=== PATIENT | female | born 1965 | race Caucasian/White ===

== ENCOUNTER 2016-05-27 14:43 | Emergency (ER) | payer MEDICARE, MEDICAID ==
[~2016-05-27] VITALS: Ht 175.3 cm; Wt 92.4 kg
[~2016-05-27 14:43] MED LIST: ESTR1TAB PO; ESTR42.5V VA; HYDR1CAP30 PO; PERC7.5T13 PO
[2016-05-27 14:52] VITALS: BP 125/74; PULSE 71; RESP 16; TEMP 97.6; O2SAT 99
[2016-05-27 15:37] LABS: BLOOD, URINE NEG (NEG); GLUCOSE,URINE NEG (NEG); KETONE, URINE NEG (NEG); NITRITE,URINE NEG (NEG)
[2016-05-27] MEDS ORDERED: LIDO1CRE8 TOPICAL (15:52)
[2016-05-27] MEDS ORDERED: ESTR1TAB PO (15:52)
[2016-05-27] MEDS ORDERED: ESTR42.5V VAGINAL (15:52)
[2016-05-27] MEDS ORDERED: LIDO3CRE TOPICAL (15:52)
[2016-05-27] MEDS ORDERED: PERC7.5T13 PO (15:52)
[2016-05-27] MEDS ORDERED: HYDR1CAP30 PO (15:52)
[2016-05-27 15:57] LABS: URINE COLOR YELLOW (YELLW/STRAW)
[2016-05-27 15:58] LABS: COMMENT (UR) CULT NOT INDICATED; CULTURE IF INDICATED CULT NOT INDICATED; RBC, URINE 0-3 /hpf (0-3); WBC, URINE 0-2 /hpf (0-5)
--- NOTE | 2016-05-27 16:20 | PD ---
HPI Chief Complaint: Complaint Time Seen by Provider: 15:41 Travel History International Travel<30 days: No Contact w/Intl Traveler<30days: No Traveled to known affect area: No History of Present Illness HPI Patient is a 51 year old transgender (male to female) patient presents to the emergency department for complaints of frequent urination and pelvic pain. Patient states has been seen numerous times in the past diagnosed with UTI and this feels similar. she also has a history of chronic pain syndrome of her genitalia and pelvis. Patient states she follows with a urologist but has not seen in some time. Denies discharge, diarrhea, blood in urine, fever. States symptoms on/off for a month. Waxing and waning. Now moderate in severity. PFSH Past Medical History Depression: Yes Heart Rhythm Problems: No Cardiac Catheterization: No Cardiovascular Problems: No High Cholesterol: Yes Congestive Heart Failure: No Diabetes: No Diminished Hearing: No Gastrointestinal Disorders: Yes GERD: Yes Genitourinary: Yes (Frequent UTI's/pelvic pain) Hypertension: No Immunizations Current: No Myocardial Infarction: No Tetanus Vaccination: Unknown Influenza Vaccination: No ?: Not Menopausal: Yes Past Surgical History Abdominal Surgery: Yes (Hernia repair) Coronary Artery Bypass Graft: No Genitourinary Surgery: Yes (Gender reassignment sx) Gynecologic Surgery: Yes (Gender reassignment sx) Hysterectomy: No Other Surgery: Yes (GENDER REASSAIGNMENT SURGERY lt labial) Family History Family Myocardial Infarction: Yes Social History Alcohol Use: No Tobacco Use: No Substance Use: No Allergies-Medications (Allergen,Severity, Reaction): Coded Allergies: Ampicillin (Verified Allergy, Severe, RASH, 05/27/16) Diazepam (Verified Allergy, Severe, nausea dizzy fainting , 05/27/16) Valium (Verified Allergy, Severe, DIZZY, 05/27/16) Sulfa (Verified Allergy, Intermediate, nausea, 05/27/16) Terazosin (Unverified Adverse Reaction, Severe, made me feel bad to stop it, 05/27/16) Dolobid (Verified Adverse Reaction, Intermediate, nausea, 05/27/16) Floxcin (Verified Adverse Reaction, Intermediate, NAUSEA, 05/27/16) Relafen (Verified Adverse Reaction, Unknown, nausea, 05/27/16) Reported Meds & Prescriptions Reported Meds & Active Scripts Active Proair Hfa 8.5 GM Inh (Albuterol Sulfate) 90 Mcg/Act Aer 1 Puff INH Q4H PRN 108 mcg/actuation Reported Hydroxyzine Pamoate 25 Mg Cap 25 Mg PO Q6H PRN Percocet (Oxycodone-Acetaminophen) 7.5-325 mg Tab 1 Tab PO Q6H PRN Lidocaine Topical (Lidocaine HCl) 5 % Cream 1 Applic TOPICAL QID PRN Lidocaine-Hydrocortisone Topical 3-0.5 % Cream 1 Applic TOPICAL BID PRN Estradiol 1 Mg Tab 1 Mg PO DAILY Estrace Vaginal (Estradiol) 0.01% Cream 1 Appl VAGINAL HS Review of Systems Except as stated in HPI: all other systems reviewed are Neg Physical Exam Narrative GENERAL: WD/WN in nad. SKIN: Warm and dry. HEAD: Atraumatic. Normocephalic. EYES: Pupils equal and round. No scleral icterus. No injection or drainage. ENT: No nasal bleeding or discharge. Mucous membranes pink and moist. NECK: Trachea midline. No JVD. CARDIOVASCULAR: Regular rate and rhythm. RESPIRATORY: No accessory muscle use. Clear to auscultation. Breath sounds equal bilaterally. GASTROINTESTINAL: Abdomen soft, non-tender, nondistended. Hepatic and splenic margins not palpable. Patient also demonstrates an area in her left groin which is tender (examined with female nurse diagnostics sales developer at all times). MUSCULOSKELETAL: Extremities without clubbing, cyanosis, or edema. No obvious deformities. Low back with minimal tenderness at SI joints (examined with female nurse diagnostics sales developer at all times). NEUROLOGICAL: Awake and alert. No obvious cranial nerve deficits. Motor grossly within normal limits. Five out of 5 muscle strength in the arms and legs. Normal speech. PSYCHIATRIC: Appropriate mood and affect; insight and judgment normal. Data Data Last Documented VS Vital Signs Date Time Temp Pulse Resp B/P Pulse Ox O2 Delivery O2 Flow Rate FiO2 05/27/16 15:43 16 05/27/16 14:52 97.6 71 125/74 99 Orders Urinalysis - C+S If Indicated (05/27/16 14:51) Labs Laboratory Tests Test 05/27/16 15:00 Urine Color YELLOW Urine Turbidity CLEAR Urine pH 7.0 Urine Specific [place] 1.008 Urine Protein NEG mg/dL Urine Glucose (UA) NEG mg/dL Urine Ketones NEG mg/dL Urine Occult Blood NEG Urine Nitrite NEG Urine Bilirubin NEG Urine Leukocyte Esterase NEG Urine RBC 0-3 /hpf Urine WBC 0-2 /hpf Microscopic Urinalysis Comment CULT NOT INDICATED MDM Medical Decision Making Medical Screen Exam Complete: Yes Emergency Medical Condition: Yes Differential Diagnosis UTI, Overactive bladder, hyperglycemia seems unlikely, pelvic pain. Narrative Course Roomed in ER, patient UA completely negative. No glycosuria, no infection. She has ambulated to the rest room multiple times in NAD. After negative UA, she states she has several other issues she would like me to see including low back and groin. Other than mild bilateral SI tenderness, no abnormalities seen. Patient is stable for discharge. Needs follow up with PCP and urologist (which she has) for further workup as outpatient. Patient incidentally asked for a refill on albuterol which she states frequently needs in cold months. Denies SOB currently. Diagnosis Primary Impression: Dysuria Med/Other Pt SpecificInfo: Prescription(s) given Scripts Albuterol 8.5 GM Inh (Proair Hfa 8.5 GM Inh)90 Mcg/Act Aer1 Puff INH Q4H PRN ( SHORTNESS OF BREATH) #1 INHALER Ref 0 108 mcg/actuation Prov:Jarrod Ramirez MD 05/27/16 Disposition: 01 DISCHARGE HOME Condition: Stable Jarrod Ramirez MD May 27, 2016 16:20
[2016-05-27] MEDS ORDERED: ALBUAER3 INH (16:35)
== END 2016-05-27 16:44 | disposition home or self-care (01) ==
LOC: PHED 14:43
DX: R30.0 Dysuria (principal)
CPT/HCPCS: 81001; 99284

== ENCOUNTER 2016-09-29 16:08 | Emergency (ER) | payer MEDICAID, MEDICARE ==
[~2016-09-29] VITALS: Ht 175.3 cm; Wt 89.0 kg
[~2016-09-29 16:08] MED LIST changes: +ALBUAER3 INH; -ESTR42.5V VA; +ESTR42.5V VAGINAL; +LIDO1CRE8 TOPICAL; +LIDO3CRE TOPICAL
[2016-09-29 16:12] VITALS: BP 142/85; PULSE 80; RESP 16; TEMP 97.8; O2SAT 95
[2016-09-29] MEDS ORDERED: AZIT250T3 PO (16:54)
[2016-09-29] MEDS ORDERED: VENTAER INH (16:55)
--- NOTE | 2016-09-29 16:59 | PD ---
HPI Chief Complaint: Cold / Flu Symptoms Time Seen by Provider: 16:20 Travel History International Travel<30 days: No Contact w/Intl Traveler<30days: No Traveled to known affect area: No History of Present Illness HPI 51-year-old female since emergency department for evaluation of a cough for greater than 2 weeks. Patient denies fever, chills, chest pain, shortness of breath. She reports that approximately 2 weeks ago she had upper respiratory like symptoms that originally improved and returned. She now reports a productive cough. Patient has history of asthma and is requesting refill of her albuterol inhaler. PFSH Past Medical History Asthma: Yes Depression: Yes Heart Rhythm Problems: No Cardiac Catheterization: No Cardiovascular Problems: No High Cholesterol: Yes Congestive Heart Failure: No Diabetes: No Diminished Hearing: No Gastrointestinal Disorders: Yes GERD: Yes Genitourinary: Yes (Frequent UTI's/pelvic pain) Hypertension: No Immunizations Current: No Myocardial Infarction: No ?: Not Menopausal: Yes Past Surgical History Abdominal Surgery: Yes (Hernia repair) Coronary Artery Bypass Graft: No Genitourinary Surgery: Yes (Gender reassignment sx) Gynecologic Surgery: Yes (Gender reassignment sx) Hysterectomy: No Other Surgery: Yes (GENDER REASSAIGNMENT SURGERY lt labial) Family History Family Myocardial Infarction: Yes Social History Alcohol Use: No Tobacco Use: No Substance Use: No Allergies-Medications (Allergen,Severity, Reaction): Coded Allergies: Ampicillin (Verified Allergy, Severe, RASH, 09/29/16) Bactrim (Verified Allergy, Severe, 09/29/16) Diazepam (Verified Allergy, Severe, nausea dizzy fainting , 09/29/16) Valium (Verified Allergy, Severe, DIZZY, 09/29/16) Sulfa (Verified Allergy, Intermediate, nausea, 09/29/16) Terazosin (Unverified Adverse Reaction, Severe, made me feel bad to stop it, 09/29/16) Dolobid (Verified Adverse Reaction, Intermediate, nausea, 09/29/16) Floxcin (Verified Adverse Reaction, Intermediate, NAUSEA, 09/29/16) Relafen (Verified Adverse Reaction, Unknown, nausea, 09/29/16) Reported Meds & Prescriptions Reported Meds & Active Scripts Active Proair Hfa 8.5 GM Inh (Albuterol Sulfate) 90 Mcg/Act Aer 1 Puff INH Q4H PRN 108 mcg/actuation Reported Hydroxyzine Pamoate 25 Mg Cap 25 Mg PO Q6H PRN Percocet (Oxycodone-Acetaminophen) 7.5-325 mg Tab 1 Tab PO Q6H PRN Lidocaine-Hydrocortisone Topical 3-0.5 % Cream 1 Applic TOPICAL BID PRN Estradiol 1 Mg Tab 1 Mg PO DAILY Estrace Vaginal (Estradiol) 0.01% Cream 1 Appl VAGINAL HS Review of Systems Except as stated in HPI: all other systems reviewed are Neg Physical Exam Narrative GENERAL: Well-nourished, well-developed patient. Hoarse voice. SKIN: Focused skin assessment warm/dry. HEAD: Normocephalic. EYES: No scleral icterus. No injection or drainage. NECK: Supple, trachea midline. No JVD or lymphadenopathy. CARDIOVASCULAR: Regular rate and rhythm without murmurs, gallops, or rubs. RESPIRATORY: Breath sounds equal bilaterally. No accessory muscle use. GASTROINTESTINAL: Abdomen soft, non-tender, nondistended. MUSCULOSKELETAL: No cyanosis, or edema. BACK: Nontender without obvious deformity. No CVA tenderness. Data Data Last Documented VS Vital Signs Date Time Temp Pulse Resp B/P Pulse Ox O2 Delivery O2 Flow Rate FiO2 09/29/16 16:12 97.8 80 16 142/85 95 MDM Medical Decision Making Medical Screen Exam Complete: Yes Emergency Medical Condition: Yes Differential Diagnosis Bronchitis, laryngitis, viral infection Narrative Course 51-year-old female presents emergency department for evaluation of cough grater than 2 weeks. Patient reports she had flulike symptoms approximately 2-3 weeks ago. She reports symptoms improved and then returned. She reports she now has a productive cough. She denies fever, chills, chest pain, shortness of breath. She does have history of asthma and is requesting refill of her albuterol inhaler. On exam she has no adventitious breath sounds. Patient will be treated for bronchitis and given the stated duration of her symptoms she will be put on antibiotics. She is instructed to follow with her primary doctor for recheck. Diagnosis Primary Impression: Bronchitis Referrals: Primary Care Physician Scripts Albuterol 18 GM Inh (Ventolin Hfa 18 GM Inh)90 Mcg/Act Aer2 Puff INH Q4-6H PRN ( SHORTNESS OF BREATH) #1 INHALER Ref 0 Prov:Petrona Zamorano SUREKHA 09/29/16 Azithromycin 250 Mg [id number] Mg PO DIRECTED #6 TAB Ref 0 Take 2 tabs (500 mg) on day 1 then 1 tab daily x 4 days. Prov:Petrona Zamorano 09/29/16 Disposition: 01 DISCHARGE HOME Condition: Stable Petrona Zamorano Sep 29, 2016 16:59
== END 2016-09-29 17:05 | disposition home or self-care (01) ==
LOC: PHEFT 16:08
DX: J40 Bronchitis, not specified as acute or chronic (principal); E78.00 Pure hypercholesterolemia, unspecified; K21.9 Gastro-esophageal reflux disease without esophagitis; Z87.440 Personal history of urinary (tract) infections
CPT/HCPCS: 99284

== ENCOUNTER 2016-10-21 11:23 | Emergency (ER) | payer MEDICARE ==
[~2016-10-21] VITALS: Ht 175.3 cm; Wt 91.0 kg
[~2016-10-21 11:23] MED LIST changes: +AZIT250T3 PO; -LIDO1CRE8 TOPICAL; +VENTAER INH
[2016-10-21 11:27] VITALS: BP 132/78; PULSE 68; RESP 16; TEMP 97.5; O2SAT 97
--- NOTE | 2016-10-21 11:37 | PD ---
HPI Chief Complaint: Complaint Time Seen by Provider: 11:35 Travel History International Travel<30 days: No Contact w/Intl Traveler<30days: No Traveled to known affect area: No History of Present Illness HPI 51 YO F with PMH of chronic pain syndrome of the pelvis presents to the ED for evaluation of 3 day history of low back pain and one day history of dysuria. Patient endorses discomfort in the lower abdomen and decreased appetite. Denies fever, chills, nausea, vomiting, vaginal discharge. States this "feels like a UTI." Patient is male to female transgender, gender reassignment surgery in the 90s. PFSH Past Medical History Asthma: Yes Depression: Yes Heart Rhythm Problems: No Cardiac Catheterization: No Cardiovascular Problems: No High Cholesterol: Yes Congestive Heart Failure: No Diabetes: No Diminished Hearing: No Gastrointestinal Disorders: Yes GERD: Yes Genitourinary: Yes (Frequent UTI's/pelvic pain) Hypertension: No Immunizations Current: No Myocardial Infarction: No Menopausal: Yes Past Surgical History Abdominal Surgery: Yes (Hernia repair) Coronary Artery Bypass Graft: No Genitourinary Surgery: Yes (Gender reassignment sx) Gynecologic Surgery: Yes (Gender reassignment sx) Hysterectomy: No Other Surgery: Yes (GENDER REASSAIGNMENT SURGERY lt labial) Social History Alcohol Use: No Tobacco Use: No Substance Use: No Allergies-Medications (Allergen,Severity, Reaction): Coded Allergies: Ampicillin (Verified Allergy, Severe, RASH, 10/21/16) Bactrim (Verified Allergy, Severe, 10/21/16) Diazepam (Verified Allergy, Severe, nausea dizzy fainting , 10/21/16) Valium (Verified Allergy, Severe, DIZZY, 10/21/16) Sulfa (Verified Allergy, Intermediate, nausea, 10/21/16) Terazosin (Unverified Adverse Reaction, Severe, made me feel bad to stop it, 10/21/16) Dolobid (Verified Adverse Reaction, Intermediate, nausea, 10/21/16) Floxcin (Verified Adverse Reaction, Intermediate, NAUSEA, 10/21/16) Relafen (Verified Adverse Reaction, Unknown, nausea, 10/21/16) Reported Meds & Prescriptions Reported Meds & Active Scripts Active Pyridium (Phenazopyridine HCl) 100 Mg Tab 100 Mg PO Q8HR Levofloxacin 500 Mg Tablet 500 Mg PO DAILY Ventolin Hfa 18 GM Inh (Albuterol Sulfate) 90 Mcg/Act Aer 2 Puff INH Q4-6H PRN Proair Hfa 8.5 GM Inh (Albuterol Sulfate) 90 Mcg/Act Aer 1 Puff INH Q4H PRN 108 mcg/actuation Reported Hydroxyzine Pamoate 25 Mg Cap 25 Mg PO Q6H PRN Percocet (Oxycodone-Acetaminophen) 7.5-325 mg Tab 1 Tab PO Q6H PRN Lidocaine-Hydrocortisone Topical 3-0.5 % Cream 1 Applic TOPICAL BID PRN Estradiol 1 Mg Tab 1 Mg PO DAILY Estrace Vaginal (Estradiol) 0.01% Cream 1 Appl VAGINAL HS Review of Systems Except as stated in HPI: all other systems reviewed are Neg Physical Exam Narrative GENERAL: Well-nourished, well-developed white female in no acute distress. SKIN: Focused skin assessment warm/dry. HEAD: Normocephalic. EYES: No scleral icterus. No injection or drainage. NECK: Supple, trachea midline. No JVD or lymphadenopathy. CARDIOVASCULAR: Regular rate and rhythm without murmurs, gallops, or rubs. RESPIRATORY: Breath sounds equal bilaterally. No accessory muscle use. GASTROINTESTINAL: Abdomen soft, non-tender, nondistended. No suprapubic tenderness. MUSCULOSKELETAL: No cyanosis, or edema. BACK: Nontender without obvious deformity. ++ right sided CVA tenderness. Data Data Last Documented VS Vital Signs Date Time Temp Pulse Resp B/P Pulse Ox O2 Delivery O2 Flow Rate FiO2 10/21/16 11:27 97.5 68 16 132/78 97 Orders Urinalysis - C+S If Indicated (10/21/16 11:33) Urine Culture (10/21/16 11:40) Levofloxacin (Levaquin) (10/21/16 12:15) Phenazopyridine (Pyridium) (10/21/16 12:15) Labs Laboratory Tests Test 10/21/16 11:40 Urine Collection Type CLEAN CATCH Urine Color YELLOW Urine Turbidity CLEAR Urine pH 6.0 Urine Specific [place] 1.010 Urine Protein NEG mg/dL Urine Glucose (UA) NEG mg/dL Urine Ketones NEG mg/dL Urine Occult Blood MOD Urine Nitrite NEG Urine Bilirubin NEG Urine Leukocyte Esterase SMALL Urine RBC 0-3 /hpf Urine WBC 9-14 /hpf Urine WBC Clumps MOD Urine Squamous Epithelial 0-5 /hpf Cells Urine Bacteria RARE /hpf Microscopic Urinalysis Comment CULTURE INDICATED MDM Medical Decision Making Medical Screen Exam Complete: Yes Emergency Medical Condition: Yes Differential Diagnosis Cystitis versus pyelonephritis versus prostatitis versus other Narrative Course 51 YO F with PMH of chronic pain syndrome of the pelvis presents to the ED for evaluation of 3 day history of low back pain and one day history of dysuria. Patient endorses discomfort in the lower abdomen and decreased appetite. Denies fever, chills, nausea, vomiting, vaginal discharge. States this "feels like a UTI." Patient is male to female transgender, gender reassignment surgery in the 90s. Vitals reviewed. Positive right-sided CVA tenderness, physical exam otherwise unremarkable. Urine positive for leukocyte esterase, wbc's, wbc clumps and bacteria. This is pyelonephritis. Patient was treated with Levaquin 500 mg twice a day 7 days, Pyridium 200 mg 3 times a day 2 days. First dose is administered in the ED. She is instructed to take all medication as prescribed, follow up with the primary care provider. She indicated understanding of instructions and is agreeable to the care plan. The patient is stable and discharged home. Diagnosis Primary Impression: Pyelonephritis Referrals: Primary Care Physician Patient Instructions: General Instructions, Urinary Tract Infection in Women ( ED) Additional Instructions: Rest, hydrate. Take antibiotics as prescribed, even if your symptoms resolve. Peridium today and tomorrow to reduce bladder spasm. Follow-up with the primary care provider. Return to the ED for any urgent or emergent medical condition. Med/Other Pt SpecificInfo: Prescription(s) given Scripts Phenazopyridine (Pyridium)100 Mg [id number] Mg PO Q8HR #6 TAB Ref 0 Prov:Irma Saldivar DO 10/21/16 Levofloxacin 500 Mg [id number] Mg PO DAILY #14 TAB Ref 0 Prov:Irma Saldivar DO 10/21/16 Disposition: 01 DISCHARGE HOME Condition: Stable Ericka Castro Oct 21, 2016 11:37
[2016-10-21 11:49] LABS: GLUCOSE,URINE NEG (NEG); KETONE, URINE NEG (NEG); NITRITE,URINE NEG (NEG)
[2016-10-21 11:51] LABS: BLOOD, URINE MOD (NEG); METHOD OF COLLECTION CLEAN CATCH; URINE COLOR YELLOW (YELLW/STRAW)
[2016-10-21 11:53] LABS: BACTERIA, URINE RARE /hpf; COMMENT (UR) CULTURE INDICATED; CULTURE IF INDICATED CULTURE INDICATED; RBC, URINE 0-3 /hpf (0-3); SQUAMOUS EPITHELIAL CELL URINE 0-5 /hpf (0-5)
[2016-10-21] MEDS ORDERED: LEVO500T8 PO (12:07)
[2016-10-21] MEDS ORDERED: PHEN0.4T PO (12:07)
[2016-10-21] MEDS ORDERED: LEVOFLOXACIN 500 MG TAB PO ONE (12:15)
[2016-10-21] MEDS ORDERED: PHENAZOPYRIDINE HCL 200 MG TAB PO ONE (12:15)
== END 2016-10-21 12:20 | disposition home or self-care (01) ==
LOC: PHEFT 11:23
DX: B96.4 Proteus (mirabilis) (morganii) as the cause of diseases classified elsewhere (principal); N12 Tubulo-interstitial nephritis, not specified as acute or chronic; J45.909 Unspecified asthma, uncomplicated; F32.9 Major depressive disorder, single episode, unspecified; E78.00 Pure hypercholesterolemia, unspecified
CPT/HCPCS: 81001; 87077; 87086; 87186; 99284

== ENCOUNTER 2016-12-24 16:54 | Emergency (ER) | payer MEDICARE, MEDICAID ==
[~2016-12-24] VITALS: Ht 175.3 cm; Wt 94.0 kg
[~2016-12-24 16:54] MED LIST changes: -AZIT250T3 PO; +LEVO500T8 PO; +PHEN0.4T PO
[2016-12-24 17:15] VITALS: BP 142/75; PULSE 84; RESP 16; TEMP 98; O2SAT 99
[2016-12-24] MEDS ORDERED: TETANUS/DIPHTHERIA TOXOID ADULT 0.5 ML VIAL IM ONE (18:15)
[2016-12-24] MEDS ORDERED: LIDOCAINE HCL 1% 30 ML VIAL INFIL ONE (18:15)
--- NOTE | 2016-12-24 18:18 | PD ---
HPI Chief Complaint: Laceration/Skin Injury Time Seen by Provider: 17:52 Travel History International Travel<30 days: No Contact w/Intl Traveler<30days: No Traveled to known affect area: No History of Present Illness HPI 51 YO F presents to the Ed for evaluation of right hand pain and sorehead laceration. Patient states that she tripped over the threshold of her doorway and hit her head on the curb. Denies LOC. She denies headache, dizziness, vision changes, difficulties with gait. On presentation she endorses "mild" pain in the hand. She denies numbness, tingling, limitations to range of motion of the hand. Unsure of the date of the last tetanus immunization. PFSH Past Medical History Asthma: Yes Depression: Yes Heart Rhythm Problems: No Cardiac Catheterization: No Cardiovascular Problems: No High Cholesterol: Yes Congestive Heart Failure: No Diabetes: No Diminished Hearing: No Gastrointestinal Disorders: Yes GERD: Yes Genitourinary: Yes (Frequent UTI's/pelvic pain) Hypertension: No Medical other: Yes (pelvic nerve damage ) Immunizations Current: No Myocardial Infarction: No Tetanus Vaccination: < 5 Years Influenza Vaccination: No ?: Not Menopausal: Yes Past Surgical History Abdominal Surgery: Yes (Hernia repair) Coronary Artery Bypass Graft: No Genitourinary Surgery: Yes (Gender reassignment sx) Gynecologic Surgery: Yes (Gender reassignment sx) Hysterectomy: No Other Surgery: Yes (gender change, Inguinal hernia repair ) Social History Alcohol Use: No Tobacco Use: No Substance Use: No Allergies-Medications (Allergen,Severity, Reaction): Coded Allergies: ampicillin (Unverified Allergy, Severe, RASH, 12/24/16) diazepam (Unverified Allergy, Severe, DIZZY, 12/24/16) sulfamethoxazole (Unverified Allergy, Severe, 12/24/16) trimethoprim (Unverified Allergy, Severe, 12/24/16) Sulfa (Sulfonamide Antibiotics) (Unverified Allergy, Intermediate, nausea , 12/24/16) terazosin (Unverified Adverse Reaction, Severe, made me feel bad to stop it, 12/24/16) diflunisal (Unverified Adverse Reaction, Intermediate, nausea, 12/24/16) ofloxacin (Unverified Adverse Reaction, Intermediate, NAUSEA, 12/24/16) nabumetone (Unverified Adverse Reaction, Unknown, nausea, 12/24/16) Reported Meds & Prescriptions Reported Meds & Active Scripts Active Ventolin Hfa 18 GM Inh (Albuterol Sulfate) 90 Mcg/Act Aer 2 Puff INH Q4-6H PRN Reported Hydroxyzine Pamoate 25 Mg Cap 25 Mg PO Q6H PRN Percocet (Oxycodone-Acetaminophen) 7.5-325 mg Tab 1 Tab PO Q6H PRN Estradiol 1 Mg Tab 1 Mg PO DAILY Estrace Vaginal (Estradiol) 0.01% Cream 1 Appl VAGINAL HS Review of Systems Except as stated in HPI: all other systems reviewed are Neg Physical Exam Narrative GENERAL: Well-nourished, well-developed white female in no acute distress. Sitting up on the stretcher. SKIN: Warm and dry. 2.5 cm laceration of the left forehead. HEAD: Normocephalic. Atraumatic. No raccoon eyes or pryor sign. No tenderness to palpation of the skull. No bony step-offs. No malocclusion of the teeth. EYES: No scleral icterus. No injection or drainage. PERRLA. EOMI. ENT: Pearly weston tympanic membrane is bilaterally. Nasal mucosa is moist. Oropharynx without erythema, edema or exudate. NECK: Supple, trachea midline. No JVD or lymphadenopathy. No midline tenderness to palpation. Patient retains full, active, painless range of motion of the neck. CARDIOVASCULAR: Regular rate and rhythm without murmurs, gallops, or rubs. 2+ DP and radial pulses bilaterally. RESPIRATORY: Breath sounds clear and equal bilaterally. No accessory muscle use. GASTROINTESTINAL: Abdomen soft, non-tender, nondistended. + Bowel sounds FOCUSED RIGHT UPPER EXTREMITY EXAM: 2+ radial pulse. Mild tenderness to palpation of the distal ulna. Mild pain elicited with flexion and extension of the wrist. Strong finger to thumb opposition with each digit. Patient is able to flex and extend the fingers without pain. Neurovascularly intact. MUSCULOSKELETAL: No cyanosis, or edema. No other tenderness to palpation or limitations to range of motion of the joints of the upper and lower extremities bilaterally. NEUROLOGICAL: Awake and alert. Cranial nerves II through XII intact. Motor and sensory grossly within normal limits. 5/5 muscle strength in all muscle groups. Normal speech. BACK: Nontender without obvious deformity. No CVA tenderness. No midline tenderness. Data Data Last Documented VS Vital Signs Date Time Temp Pulse Resp B/P (MAP) Pulse Ox O2 Delivery O2 Flow Rate FiO2 12/24/16 17:15 98.0 84 16 142/75 (97) 99 Orders Orders Tetanus/Diphtheria Tox Adult (Tetanus/Di (12/24/16 18:15) Lidocaine 1% Inj (Xylocaine 1% Inj) (12/24/16 18:15) Wrist, Complete ([id number]) (12/24/16 18:48) Ice/Cold Pack (12/24/16 18:48) MDM Medical Decision Making Medical Screen Exam Complete: Yes Emergency Medical Condition: Yes Differential Diagnosis Closed head injury versus laceration versus need for tetanus immunization versus wrist pain versus wrist fracture versus other Narrative Course 51 YO F presents to the Ed for evaluation of right hand pain and sorehead laceration. Patient states that she tripped over the threshold of her doorway and hit her head on the curb. Denies LOC. She denies headache, dizziness, vision changes, difficulties with gait. On presentation she endorses "mild" pain in the hand. She denies numbness, tingling, limitations to range of motion of the hand. Unsure of the date of the last tetanus immunization. Vitals reviewed. Physical exam reveals a 2.5 cm laceration on the right forehead, tenderness to palpation of the distal tip of the right radius, otherwise unremarkable. The need for radiological imaging of the brain and cervical spine was ruled out by [place] CT rules. Tetanus immunization was updated. Laceration repair was performed. Please see my procedure note for details. X-ray of the right wrist reveals no acute bony injury. Patient was instructed to keep the wound clean, dry, covered, suture removal in 5-7 days. We discussed symptomatic treatment of a contusion of the wrist as well as signs of infection to watch out for. Patient indicated understanding of instructions and is agreeable to the care plan. Patient is stable and discharged home. Procedures Procedure Narrative LACERATION LOCATION: Right forehead LENGTH: 2.5 cm NUMBER OF STITCHES/NEERAJ: 7 REPAIR: The area of the laceration was prepped with Betadine and sterilely draped. The laceration was infiltrated with 1% lidocaine. The wound was copiously irrigated and explored without evidence of foreign body, tendon injury or neurovascular injury. The wound was closed using 5-0 Prolene. This was a single layer repair. A sterile dressing was applied. The patient was advised to keep the dressing clean and dry. Patient tolerated the procedure well. Diagnosis Primary Impression: Closed head injury Qualified Codes: S09.90XA - Unspecified injury of head, initial encounter Additional Impressions: Facial laceration Qualified Codes: S01.81XA - Laceration without foreign body of other part of head, initial encounter Immunization, tetanus toxoid Contusion of right wrist, initial encounter Referrals: Primary Care Physician Patient Instructions: Care For Your Stitches (ED), Facial Laceration (ED), General Instructions Additional Instructions: Rest, hydrate. Do not change the dressing for 24 hours. You may bathe normally. Do not submerge the wound. After bathing pat of wound dry. Allow the wound to air dry for 10-15 minutes. Apply a thin layer of antibiotic ointment and a clean, dry dressing. Utilize [id number] pain medications, as described on the label, as needed. Suture removal in 5-7 days. Follow-up with your primary care provider. Return to the ED for any urgent or emergent medical condition. Disposition: 01 DISCHARGE HOME Condition: Stable Ericka Castro Dec 24, 2016 18:18
[2016-12-24] MEDS ORDERED: LIDOCAINE HCL 1% 50 ML VIAL INFIL ONE (18:30)
--- NOTE | 2016-12-24 19:30 | RADRPT ---
EXAM DATE/TIME: 12/24/2016 19:08 [facility] COMPARISON: No previous studies available for comparison. INDICATIONS : Right wrist pain after patient fell today MEDICAL HISTORY : None. SURGICAL HISTORY : None. ENCOUNTER: Initial ACUITY: 1 day PAIN SCORE: 7/10 LOCATION: Right medial wrist` FINDINGS: Three view examination of the right wrist demonstrates no soft tissue swelling, dislocation, or fract ure. The carpal bones are in normal alignment. The joint spaces are maintained. Bony mineralizatio n is normal. CONCLUSION: Normal examination for a patient of this age. Zhou Coffey MD on December 24, 2016 at 19:27 Board Certified Radiologist. This report was verified electronically.
== END 2016-12-24 19:35 | disposition home or self-care (01) ==
LOC: PHED 16:54 → PHEFT 19:35
DX: S01.81XA Laceration without foreign body of other part of head, initial encounter (principal); S60.211A Contusion of right wrist, initial encounter; W01.198A Fall on same level from slipping, tripping and stumbling with subsequent striking against other object, initial encounter; Y92.009 Unspecified place in unspecified non-institutional (private) residence as the place of occurrence of the external cause; Z23 Encounter for immunization
CPT/HCPCS: 12011; 73110; 90471; 90714

== ENCOUNTER 2017-01-20 15:32 | Emergency (ER) | payer MEDICARE, MEDICAID ==
[~2017-01-20] VITALS: Ht 175.3 cm; Wt 96.8 kg
[~2017-01-20 15:32] MED LIST changes: -ALBUAER3 INH; -LEVO500T8 PO; -LIDO3CRE TOPICAL; -PHEN0.4T PO
[2017-01-20 15:41] VITALS: BP 140/67; PULSE 72; RESP 16; TEMP 98.7; O2SAT 97
--- NOTE | 2017-01-20 16:13 | PD ---
HPI Chief Complaint: Wound/Suture/Staple Re-Check Time Seen by Provider: 15:47 Travel History International Travel<30 days: No Contact w/Intl Traveler<30days: No Traveled to known affect area: No History of Present Illness HPI 51-year-old female presents to the emergency room for evaluation of right-sided headache after falling one month ago. She tripped and fell over a threshold and struck her head on the edge of the concrete curb sustaining a large laceration to her right forehead. There was no loss of consciousness. Patient came to the emergency room and had her laceration repaired. She had no dizziness, visual changes, or difficulty ambulating at the time she was seen. [facility] rules excluded need for imaging at that time. States since then she has had increasing pain around the site of the laceration that radiates posteriorly with associated nausea but no vomiting. Occasionally worsens when she stands up. She has prescribed hydrocodone which adequately relieve her symptoms. PFSH Past Medical History Asthma: Yes Depression: Yes Heart Rhythm Problems: No Cardiac Catheterization: No Cardiovascular Problems: No High Cholesterol: Yes Congestive Heart Failure: No Diabetes: No Diminished Hearing: No Gastrointestinal Disorders: Yes GERD: Yes Genitourinary: Yes (Frequent UTI's/pelvic pain) Hypertension: No Immunizations Current: No Myocardial Infarction: No ?: Not Menopausal: Yes Past Surgical History Abdominal Surgery: Yes (Hernia repair) Coronary Artery Bypass Graft: No Genitourinary Surgery: Yes (Gender reassignment sx) Gynecologic Surgery: Yes (Gender reassignment sx) Hysterectomy: No Other Surgery: Yes (gender change, Inguinal hernia repair ) Family History Family Myocardial Infarction: Yes Social History Alcohol Use: No Tobacco Use: No Substance Use: No Allergies-Medications (Allergen,Severity, Reaction): Coded Allergies: ampicillin (Unverified Allergy, Severe, RASH, 01/20/17) diazepam (Unverified Allergy, Severe, DIZZY, 01/20/17) sulfamethoxazole (Unverified Allergy, Severe, 01/20/17) trimethoprim (Unverified Allergy, Severe, 01/20/17) Sulfa (Sulfonamide Antibiotics) (Unverified Allergy, Intermediate, nausea , 01/20/17) terazosin (Unverified Adverse Reaction, Severe, made me feel bad to stop it, 01/20/17) diflunisal (Unverified Adverse Reaction, Intermediate, nausea, 01/20/17) ofloxacin (Unverified Adverse Reaction, Intermediate, NAUSEA, 01/20/17) nabumetone (Unverified Adverse Reaction, Unknown, nausea, 01/20/17) Reported Meds & Prescriptions Reported Meds & Active Scripts Active Ventolin Hfa 18 GM Inh (Albuterol Sulfate) 90 Mcg/Act Aer 2 Puff INH Q4-6H PRN Reported Hydroxyzine Pamoate 25 Mg Cap 25 Mg PO Q6H PRN Percocet (Oxycodone-Acetaminophen) 7.5-325 mg Tab 1 Tab PO Q6H PRN Estradiol 1 Mg Tab 1 Mg PO DAILY Estrace Vaginal (Estradiol) 0.01% Cream 1 Appl VAGINAL HS Review of Systems Except as stated in HPI: all other systems reviewed are Neg Physical Exam Narrative GENERAL: Well-nourished, well-developed female in no acute distress. Afebrile. Ambulatory. SKIN: Focused skin assessment warm/dry. There is a well-healed scar over the right forehead. No hematoma. No tenderness to palpation of the scalp. HEAD: Normocephalic. EYES: PERRL, EOMI, no discharge or injection. No scleral icterus. NECK: Supple, trachea midline. No JVD or lymphadenopathy. CARDIOVASCULAR: Regular rate and rhythm without murmurs, gallops, or rubs. RESPIRATORY: Breath sounds equal bilaterally. No accessory muscle use. NEUROLOGICAL: Awake and alert. Cranial nerves II through XII intact. Motor and sensory grossly within normal limits. Five out of 5 muscle strength in all muscle groups. Normal speech. No pronator drift in upper or lower extremities. Normal finger to nose test. Data Data Last Documented VS Vital Signs Date Time Temp Pulse Resp B/P (MAP) Pulse Ox O2 Delivery O2 Flow Rate FiO2 01/20/17 15:41 98.7 72 16 140/67 (91) [address] Brain W/O Iv Contrast(Rout) (01/20/17 ) [facility] Medical Decision Making Medical Screen Exam Complete: Yes Emergency Medical Condition: Yes Medical Record Reviewed: Yes Differential Diagnosis Postconcussive syndrome, headache, contusion, fracture, intracranial hemorrhage Narrative Course 51-year-old female presents to the emergency room for evaluation of headache for the past month. Pain started after patient struck her head on a concrete curb. There is no loss consciousness nausea or vomiting. Patient came to the emergency room and the laceration repaired but never had any imaging done per [place] [facility] rules. Patient is concerned for persistence of headache which she states has been worsening since the injury. No focal neurological deficits. Patient is resting comfortably and interacting appropriately. Physical exam reveals a well-healed scar to the right forehead without edema, hematoma, or tenderness to palpation. PERRLA. CT was ordered to evaluate for skull fracture. CT is negative. Patient likely has postconcussive syndrome. Discharged with instructions to take prescribed hydrocodone and ibuprofen for pain and follow up with a primary care physician. She has a follow-up appointment this week. Told to return for worsening symptoms. She understands and agrees to plan. Diagnosis Primary Impression: Postconcussive syndrome Referrals: Primary Care Physician Additional Instructions: Rest and drink plenty of fluids. Take ibuprofen with food as directed, as needed for pain. Apply ice to the affected area for 20 minutes at a time, as needed for pain and swelling. Follow-up with a primary care physician. Return to the emergency room for worsening symptoms. Disposition: 01 DISCHARGE HOME Condition: Stable Saskia Bui Jan 20, 2017 16:12
--- NOTE | 2017-01-20 16:21 | RADRPT ---
EXAM DATE/TIME: 01/20/2017 16:13 [facility] COMPARISON: No previous studies available for comparison. INDICATIONS : Headache, laceration to head 12/24/16 RADIATION DOSE: 58.54 CTDIvol (mGy) MEDICAL HISTORY : GERD, Asthma SURGICAL HISTORY : Gender reassignment ENCOUNTER: [facility] ACUITY: 1 month PAIN SCALE: 5/10 LOCATION: cranial TECHNIQUE: Multiple contiguous axial images were obtained of the head. Using automated exposure control and adj ustment of the mA and/or kV according to patient size, radiation dose was kept as low as reasonably a chievable to obtain optimal diagnostic quality images. DICOM format image data is available electro nically for review and comparison. FINDINGS: CEREBRUM: The ventricles are normal for age. No evidence of midline shift, mass lesion, hemorrhage or acute in farction. No extra-axial fluid collections are seen. POSTERIOR FOSSA: The cerebellum and brainstem are intact. The 4th ventricle is midline. The cerebellopontine angle i s unremarkable. EXTRACRANIAL: The visualized portion of the orbits is intact. SKULL: The calvaria is intact. No evidence of skull fracture. CONCLUSION: 1. No evidence of acute intracranial pathology. No masses are identified. William Unger MD on January 20, 2017 at 16:19 Board Certified Radiologist. This report was verified electronically.
== END 2017-01-20 16:37 | disposition home or self-care (01) ==
LOC: PHEFT 15:32
DX: F07.81 Postconcussional syndrome (principal); W01.0XXA Fall on same level from slipping, tripping and stumbling without subsequent striking against object, initial encounter; E78.00 Pure hypercholesterolemia, unspecified
CPT/HCPCS: 70450

== ENCOUNTER 2017-05-11 16:47 | Inpatient (IN) | payer MEDICARE, MEDICAID ==
[~2017-05-11] VITALS: Ht 175.3 cm; Wt 100.2 kg
[2017-05-11] VITALS (9 sets, daily range): BP systolic 104–155; BP diastolic 56–76; PULSE 90–111; RESP 16–20; TEMP 99.6–102.6; O2SAT 94–99
[2017-05-11] MEDS ORDERED: PERC7.5T13 PO (17:15)
[2017-05-11] MEDS ORDERED: SODIUM CHLOR 0.9% 1000 ML INJ 1,000 ML IV SCH (17:19)
[2017-05-11] MEDS ORDERED: SODIUM CHLORIDE 0.9% FLUSH 10 ML FLUSH IV FLUSH PRN (17:30)
[2017-05-11] MEDS ORDERED: ONDANSETRON HCL 4 MG/2 ML VIAL IVP ONE (17:30)
[2017-05-11] MEDS ORDERED: MORPHINE SULFATE 4 MG/ML INJ IV PUSH ONE (17:30)
[2017-05-11 17:54] LABS: AUTOMATED NEUTROPHIL # 10.8 TH/MM3 (1.8-7.7); BASOPHIL % 0.2 % (0.0-2.0); EOSINOPHIL % 0.3 % (0.0-4.0); HEMATOCRIT 40.5 % (35.0-46.0); HEMOGLOBIN 13.6 GM/DL (11.6-15.3); LYMPH % 2.9 % (9.0-44.0); LYMPHOCYTE # 0.3 TH/MM3 (1.0-4.8); MEAN CELL VOLUME 85.4 FL (80.0-100.0); MEAN CORPUSCULAR HEMOGLOBIN 28.8 PG (27.0-34.0); MEAN CORPUSCULAR HGB CONC 33.7 % (32.0-36.0); MEAN PLATELET VOLUME 6.5 FL (7.0-11.0); MONO % 4.1 % (0.0-8.0); MONOCYTE # 0.5 TH/MM3 (0-0.9); NEUT % 92.5 % (16.0-70.0); PLATELET COUNT 239 TH/MM3 (150-450); RED BLOOD COUNT 4.74 MIL/MM3 (4.00-5.30); RED CELL DISTRIBUTION WIDTH 11.6 % (11.6-17.2); WHITE BLOOD COUNT 11.6 TH/MM3 (4.0-11.0)
[2017-05-11 18:00] LABS: CHLORIDE 99 MEQ/L (98-107); SODIUM (NA) 134 MEQ/L (136-145)
[2017-05-11 18:03] LABS: CALCIUM 8.6 MG/DL (8.5-10.1)
[2017-05-11 18:04] LABS: ALBUMIN 3.9 GM/DL (3.4-5.0); BICARBONATE 24.9 MEQ/L (21.0-32.0); BLOOD UREA NITROGEN 7 MG/DL (7-18); GLUCOSE,RANDOM 114 MG/DL (74-106); LIPASE 96 U/L (73-393)
[2017-05-11 18:07] LABS: ALT (GPT) 32 U/L (10-53); AST (GOT) 20 U/L (15-37); CREATININE 0.85 MG/DL (0.50-1.00); GLOMERULAR FILTRATION RATE 70 ML/MIN (>89)
[2017-05-11 18:08] LABS: TOTAL BILIRUBIN ADULT 0.5 MG/DL (0.2-1.0); TOTAL PROTEIN 7.7 GM/DL (6.4-8.2)
[2017-05-11 18:10] LABS: ALKALINE PHOSPHATASE 63 U/L (45-117)
[2017-05-11 18:31] LABS: BILIRUBIN, URINE NEG (NEG); BLOOD, URINE NEG (NEG); GLUCOSE,URINE NEG (NEG); KETONE, URINE TRACE mg/dL (NEG); NITRITE,URINE NEG (NEG); URINE LEUKOCYTE ESTERASE NEG (NEG)
[2017-05-11] MEDS ORDERED: IOHEXOL 350 MG/ML 10 ML VIAL (for RAD DIAG) IVCONTRAST ONE (18:41)
[2017-05-11 18:55] LABS: URINE COLOR YELLOW (YELLW/STRAW)
[2017-05-11 18:56] LABS: RBC, URINE 0-3 /hpf (0-3); SQUAMOUS EPITHELIAL CELL URINE 0-5 /hpf (0-5); WBC, URINE 0-2 /hpf (0-5)
--- NOTE | 2017-05-11 19:15 | PD ---
HPI Chief Complaint: GI Complaint Time Seen by Provider: 17:16 Travel History International Travel<30 days: No Contact w/Intl Traveler<30days: No Traveled to known affect area: No History of Present Illness HPI 51-year-old female here for evaluation of nausea, vomiting, diarrhea, flulike symptoms. She reports the symptoms started yesterday and continued to today. She does not believe that there is blood in her emesis or diarrhea. She is complaining of diffuse abdominal cramping. Denies history of abdominal surgeries. She has had a slight cough and complains of sore throat. She is unsure if she has had fever, but has subjective fevers and chills. PFSH Past Medical History Hx Anticoagulant Therapy: No Asthma: Yes Depression: Yes Heart Rhythm Problems: No Cardiac Catheterization: No Cardiovascular Problems: Yes (CHOL) High Cholesterol: Yes Congestive Heart Failure: No Diabetes: No Diminished Hearing: No Gastrointestinal Disorders: Yes GERD: Yes Genitourinary: Yes (Frequent UTI's/pelvic pain) Hypertension: No Immunizations Current: No Myocardial Infarction: No Influenza Vaccination: Yes ?: Not Menopausal: Yes Past Surgical History Abdominal Surgery: Yes (Hernia repair) Coronary Artery Bypass Graft: No Genitourinary Surgery: Yes (Gender reassignment sx) Gynecologic Surgery: Yes (Gender reassignment sx) Hysterectomy: No Other Surgery: Yes (gender change, Inguinal hernia repair ) Family History Family Myocardial Infarction: Yes Social History Alcohol Use: No Tobacco Use: No Substance Use: No Allergies-Medications (Allergen,Severity, Reaction): Coded Allergies: ampicillin (Unverified Allergy, Severe, RASH, 05/11/17) diazepam (Unverified Allergy, Severe, DIZZY, 05/11/17) sulfamethoxazole (Unverified Allergy, Severe, 05/11/17) trimethoprim (Unverified Allergy, Severe, 05/11/17) Sulfa (Sulfonamide Antibiotics) (Unverified Allergy, Intermediate, nausea , 05/11/17) terazosin (Unverified Adverse Reaction, Severe, made me feel bad to stop it, 05/11/17) diflunisal (Unverified Adverse Reaction, Intermediate, nausea, 05/11/17) ofloxacin (Unverified Adverse Reaction, Intermediate, NAUSEA, 05/11/17) nabumetone (Unverified Adverse Reaction, Unknown, nausea, 05/11/17) Reported Meds & Prescriptions Reported Meds & Active Scripts Active Ventolin Hfa 18 GM Inh (Albuterol Sulfate) 90 Mcg/Act Aer 2 Puff INH Q4-6H PRN Reported Percocet (Oxycodone-Acetaminophen) 7.5-325 mg Tab 1 Tab PO Q6H PRN Hydroxyzine Pamoate 25 Mg Cap 25 Mg PO Q6H PRN Estradiol 1 Mg Tab 1 Mg PO DAILY Estrace Vaginal (Estradiol) 0.01% Cream 1 Appl VAGINAL HS Review of Systems Except as stated in HPI: all other systems reviewed are Neg Physical Exam Narrative GENERAL: Well-developed, well-nourished, awake, alert, no apparent distress. SKIN: Focused skin assessment warm/dry. No rash. HEAD: Atraumatic. Normocephalic. EYES: Pupils equal and round. No scleral icterus. No injection or drainage. ENT: Mucous membranes pink and dry. NECK: Trachea midline. No JVD. No nuchal rigidity. CARDIOVASCULAR: Regular rate and rhythm. RESPIRATORY: No accessory muscle use. Clear to auscultation. Breath sounds equal bilaterally. GASTROINTESTINAL: Abdomen soft, nondistended. Mild diffuse tenderness. No peritoneal signs. Normal bowel sounds. MUSCULOSKELETAL: No obvious deformities. No clubbing. No cyanosis. No edema. NEUROLOGICAL: Awake and alert. No obvious cranial nerve deficits. Motor grossly within normal limits. Normal speech. PSYCHIATRIC: Appropriate mood and affect; insight and judgment normal. Data Data Last Documented VS Vital Signs Date Time Temp Pulse Resp B/P (MAP) Pulse Ox O2 Delivery O2 Flow Rate FiO2 05/11/17 19:45 102.6 104 18 146/74 (98) 94 Room Air Orders Orders Complete Blood Count With Diff (05/11/17 17:19) Comprehensive Metabolic Panel (05/11/17 17:19) Lipase (05/11/17 17:19) Prothrombin Time / Inr (Pt) (05/11/17 17:19) Act Partial Throm Time (Ptt) (05/11/17 17:19) Urinalysis - C+S If Indicated (05/11/17 17:19) Ct Abd/Pel W Iv Contrast(Rout) (05/11/17 17:19) Iv Access Insert/Monitor (05/11/17 17:19) Ecg Monitoring (05/11/17 17:19) Oximetry (05/11/17 17:19) Morphine Inj (Morphine Inj) (05/11/17 17:30) Ondansetron Inj (Zofran Inj) (05/11/17 17:30) Sodium Chlor 0.9% 1000 Ml Inj (Ns 1000 M (05/11/17 17:19) Sodium Chloride 0.9% Flush (Ns Flush) (05/11/17 17:30) Influenzae A/B Antigen (05/11/17 17:19) Iohexol 350 Inj (Omnipaque 350 Inj) (05/11/17 18:41) Acetaminophen (Tylenol) (05/11/17 19:30) Chest, Single Ap (05/11/17 ) Blood Culture (05/11/17 19:47) Clindamycin 900 Mg/Ns Premix (Cleocin 90 (05/11/17 20:00) Azithromycin Inj (Zithromax Inj) (05/11/17 20:00) Sodium Chlor 0.9% 1000 Ml Inj (Ns 1000 M (05/11/17 20:00) Labs Laboratory Tests Test 05/11/17 17:40 05/11/17 18:05 White Blood Count 11.6 TH/MM3 Red Blood Count 4.74 MIL/MM3 Hemoglobin 13.6 GM/DL Hematocrit 40.5 % Mean Corpuscular Volume 85.4 FL Mean Corpuscular Hemoglobin 28.8 PG Mean Corpuscular Hemoglobin Concent 33.7 % Red Cell Distribution Width 11.6 % Platelet Count 239 TH/MM3 Mean Platelet Volume 6.5 FL Neutrophils (%) (Auto) 92.5 % Lymphocytes (%) (Auto) 2.9 % Monocytes (%) (Auto) 4.1 % Eosinophils (%) (Auto) 0.3 % Basophils (%) (Auto) 0.2 % Neutrophils # (Auto) 10.8 TH/MM3 Lymphocytes # (Auto) 0.3 TH/MM3 Monocytes # (Auto) 0.5 TH/MM3 Eosinophils # (Auto) 0.0 TH/MM3 Basophils # (Auto) 0.0 TH/MM3 CBC Comment DIFF FINAL Differential Comment Prothrombin Time 10.0 SEC Prothromb Time International Ratio 1.0 RATIO Activated Partial Thromboplast Time 28.1 SEC Blood Urea Nitrogen 7 MG/DL Creatinine 0.85 MG/DL Random Glucose 114 MG/DL Total Protein 7.7 GM/DL Albumin 3.9 GM/DL Calcium Level 8.6 MG/DL Alkaline Phosphatase 63 U/L Aspartate Amino Transf (AST/SGOT) 20 U/L Alanine Aminotransferase (ALT/SGPT) 32 U/L Total Bilirubin 0.5 MG/DL Sodium Level 134 MEQ/L Potassium Level 3.5 MEQ/L Chloride Level 99 MEQ/L Carbon Dioxide Level 24.9 MEQ/L Anion Gap 10 MEQ/L Estimat Glomerular Filtration Rate 70 ML/MIN Lipase 96 U/L Urine Color YELLOW Urine Turbidity CLEAR Urine pH 7.0 Urine Specific [place] 1.020 Urine Protein NEG mg/dL Urine Glucose (UA) NEG mg/dL Urine Ketones TRACE mg/dL Urine Occult Blood NEG Urine Nitrite NEG Urine Bilirubin NEG Urine Leukocyte Esterase NEG Urine RBC 0-3 /hpf Urine WBC 0-2 /hpf Urine Squamous Epithelial Cells 0-5 /hpf Microscopic Urinalysis Comment CULT NOT INDICATED MDM Medical Decision Making Medical Screen Exam Complete: Yes Emergency Medical Condition: Yes Medical Record Reviewed: Yes Differential Diagnosis Gastroenteritis, dehydration, metabolic abnormality, influenza, appendicitis Narrative Course Vital signs reviewed. CBC: WBC 11.6, hemoglobin 13.6, hematocrit 40.5, platelets 239, neutrophils 92.5 %. CMP is essentially unremarkable. Lipase 96. UA is not suggestive of UTI. Influenza is negative. CT abdomen pelvis: CONCLUSION: 1. Focal consolidation left lower lobe most characteristic of bronchopneumonia or aspiration. 2. Fatty liver a large to 24 cm. 3. No bowel obstruction or free fluid. No free air. Patient's temp was repeated after CT was performed and shows 102.6F. Patient reports having a cough, however states it is been nonproductive. She is unsure if she has aspirated any of the emesis that she has had. Her O2 saturation is 91% on room air. She is in no respiratory distress. She overall looks ill. She'll be started on IV antibiotics and admitted for further treatment and evaluation. Case discussed with hospitalist MEKHI Geiger working with Dr. Gottlieb. The patient will be admitted to the hospitalist service. Diagnosis Primary Impression: Sepsis Qualified Codes: A41.9 - Sepsis, unspecified organism Additional Impressions: Pneumonia Qualified Codes: J18.1 - Lobar pneumonia, unspecified organism Gastroenteritis Admitting Information Admitting Physician Requests: Admit Ramu Alejandre MD May 11, 2017 19:15
[2017-05-11] MEDS ORDERED: ACETAMINOPHEN 325 MG TAB PO ONE (19:30)
--- NOTE | 2017-05-11 19:37 | RADRPT ---
EXAM DATE/TIME: 05/11/2017 18:37 [facility] COMPARISON: No previous studies available for comparison. INDICATIONS : Vomiting and non specific abdominal pain. IV CONTRAST: 95 cc Omnipaque 350 (iohexol) IV ORAL CONTRAST: No oral contrast ingested. RADIATION DOSE: 18.21 CTDIvol (mGy) MEDICAL HISTORY : Gastroesophageal reflux disease. Hernia, inguinal. SURGICAL HISTORY : Inguinal hernia repair. Gender reassignment surgery. ENCOUNTER: Initial ACUITY: 1 day PAIN SCALE: 0/10 LOCATION: abdomen TECHNIQUE: Volumetric scanning of the abdomen and pelvis was performed. Using automated exposure control and ad justment of the mA and/or kV according to patient size, radiation dose was kept as low as reasonably achievable to obtain optimal diagnostic quality images. DICOM format image data is available electro nically for review and comparison. FINDINGS: Focal consolidation left lower lobe most characteristic of a bronchopneumonia. Enlarged liver at 24 cm in length with fatty infiltration. Spleen, adrenals, kidneys and pancreas unr emarkable. No calcified gallstones. No biliary ductal dilatation. Small hiatal hernia. No free fluid. No bowel obstruction. No adenopathy. No acute bony abnormalities. CONCLUSION: 1. Focal consolidation left lower lobe most characteristic of bronchopneumonia or aspiration. 2. Fatty liver a large to 24 cm. 3. No bowel obstruction or free fluid. No free air. Zhou Coffey MD on May 11, 2017 at 19:32 Board Certified Radiologist. This report was verified electronically.
[2017-05-11] MEDS ORDERED: CLINDAMYCIN 900 MG/NS PREMIX 50 ML IV ONE (20:00)
[2017-05-11] MEDS ORDERED: AZITHROMYCIN INJ 500 MG in SODIUM CHLOR 0.9% 250 ML INJ 250 ML IV ONE (20:00)
[2017-05-11] MEDS ORDERED: SODIUM CHLOR 0.9% 1000 ML INJ 1,000 ML IV ONE (20:00)
--- NOTE | 2017-05-11 20:41 | RADRPT ---
EXAM DATE/TIME: 05/11/2017 20:17 [facility] COMPARISON: No previous studies available for comparison. INDICATIONS : Fever, cough. MEDICAL HISTORY : Gastroesophageal reflux disease. SURGICAL HISTORY : Gender reassignment surgery. ENCOUNTER: Initial ACUITY: 1 day PAIN SCORE: 0/10 LOCATION: Bilateral chest FINDINGS: A single view of the chest demonstrates the lungs to be symmetrically aerated with patchy airspace di sease in the left lower lung field. Right lung is clear. Accounting for the low lung volumes, heart s ize is upper limits of normal. Osseous structures are intact. CONCLUSION: Airspace process in the left lower lung field concerning for pneumonic infiltrate. Hollis Chatman MD on May 11, 2017 at 20:38 Board Certified Radiologist. This report was verified electronically.
[2017-05-11] MEDS: RESP: ALBUTEROL 2.5 MG/IPRATROPIUM 0.5 MG NEB (SCH) INH (21:57)
[2017-05-11] MEDS: ENOXAPARIN SODIUM 40 MG/0.4 ML SYRINGE SQ SCH ×2 (22:00→22:14)
[2017-05-11] MEDS: SODIUM CHLORIDE 0.9% FLUSH 10 ML FLUSH IV FLUSH SCH (22:13)
[2017-05-11] MEDS: AZTREONAM INJ 2,000 MG in SODIUM CHLORIDE 0.9% INJ 100 ML IV SCH (22:13)
[2017-05-11] MEDS: metroNIDAZOLE 500 MG INJ 100 ML IV SCH (22:14)
[2017-05-11] MEDS: SODIUM CHLORIDE 0.9% FLUSH 10 ML FLUSH IV FLUSH PRN (23:00)
[2017-05-11] MEDS: ONDANSETRON HCL 4 MG/2 ML VIAL IV PUSH PRN (23:00)
[2017-05-11] MEDS: oxyCODONE/ACETAMINOPHEN 7.5 MG/325 MG TAB PO PRN (23:01)
[2017-05-12] VITALS (9 sets, daily range): BP systolic 104–137; BP diastolic 53–77; PULSE 16–101; RESP 15–20; TEMP 99.6–100; O2SAT 92–99
[2017-05-12] MEDS ORDERED: MORPHINE SULFATE 2 MG/ML INJ IV PUSH ONE (01:00)
[2017-05-12] MEDS ORDERED: ACETAMINOPHEN 325 MG TAB PO PRN (01:15)
[2017-05-12] MEDS: TRIMETHOBENZAMIDE INJ 200 MG/2 ML VIAL IM PRN ×2 (01:24→20:54)
[2017-05-12] MEDS: SODIUM CHLORIDE 0.9% FLUSH 10 ML FLUSH IV FLUSH PRN (01:24)
[2017-05-12] MEDS: SODIUM CHLOR 0.9% 1000 ML INJ 1,000 ML IV SCH ×3 (01:25→20:29)
[2017-05-12 02:42] LABS: LACTIC ACID SEPSIS PROTOCOL 3.6 mmol/L (0.4-2.0)
[2017-05-12] MEDS: RESP: ALBUTEROL 2.5 MG/IPRATROPIUM 0.5 MG NEB (SCH) INH (03:14)
[2017-05-12] MEDS: AZTREONAM INJ 2,000 MG in SODIUM CHLORIDE 0.9% INJ 100 ML IV SCH ×3 (04:44→22:11)
[2017-05-12 04:54] LABS: AUTOMATED NEUTROPHIL # 7.6 TH/MM3 (1.8-7.7); BASOPHIL % 0.2 % (0.0-2.0); EOSINOPHIL % 0.1 % (0.0-4.0); HEMATOCRIT 35.7 % (35.0-46.0); HEMOGLOBIN 11.9 GM/DL (11.6-15.3); LYMPH % 6.6 % (9.0-44.0); LYMPHOCYTE # 0.6 TH/MM3 (1.0-4.8); MEAN CORPUSCULAR HGB CONC 33.3 % (32.0-36.0); MEAN PLATELET VOLUME 7.1 FL (7.0-11.0); MONO % 6.5 % (0.0-8.0); MONOCYTE # 0.6 TH/MM3 (0-0.9); NEUT % 86.6 % (16.0-70.0); PLATELET COUNT 218 TH/MM3 (150-450); WHITE BLOOD COUNT 8.8 TH/MM3 (4.0-11.0)
[2017-05-12 05:07] LABS: CALCIUM 8.1 MG/DL (8.5-10.1)
[2017-05-12 05:08] LABS: BICARBONATE 27.2 MEQ/L (21.0-32.0)
[2017-05-12 05:12] LABS: CREATININE 0.79 MG/DL (0.50-1.00)
[2017-05-12] MEDS: metroNIDAZOLE 500 MG INJ 100 ML IV SCH ×3 (05:36→22:50)
[2017-05-12] MEDS ORDERED: SODIUM CHLORID 0.9% 500 ML INJ 500 ML IV ONE (05:45)
[2017-05-12] MEDS ORDERED: SODIUM CHLOR 0.9% 1000 ML INJ 1,000 ML IV ONE ×2 (05:45)
[2017-05-12] MEDS: SODIUM CHLORIDE 0.9% FLUSH 10 ML FLUSH IV FLUSH SCH ×2 (08:59→20:30)
--- NOTE | 2017-05-12 09:49 | HHI.HP ---
HPI Service [facility] Primary Care Physician Darvin Durand MD (Paul) Admission Diagnosis sepsis, pneumonia, gastroenteritis Diagnoses: Chief Complaint: Feeling weak, vomiting Travel History International Travel<30 Days: No Contact w/Intl Traveler <30 Da: No Traveled to Known Affected Are: No History of Present Illness 51-year-old white female being admitted for sepsis. Patient was in her usual state of health until about 2 days ago she [facility] [place] and began experiencing cold-like symptoms. The next day she began feeling weak and started vomiting and decided come to the emergency department. Describes her emesis as nonbloody. She would at times even had dry heaving. Reports that her cough is wet but has not been able to produce sputum; denies any posttussive emesis. Reports feeling weak with body aches all over. Denies any diarrhea or change in bowel habits. Review of Systems Except as stated in HPI: all other systems reviewed are Neg Past Family Social History Past Medical History Denies any past medical history regarding liver disease Past Surgical History Multiple hernia surgeries Allergies: Coded Allergies: ampicillin (Unverified Allergy, Severe, RASH, 05/11/17) diazepam (Unverified Allergy, Severe, DIZZY, 05/11/17) sulfamethoxazole (Unverified Allergy, Severe, 05/11/17) trimethoprim (Unverified Allergy, Severe, 05/11/17) Sulfa (Sulfonamide Antibiotics) (Unverified Allergy, Intermediate, nausea , 05/11/17) terazosin (Unverified Adverse Reaction, Severe, made me feel bad to stop it, 05/11/17) diflunisal (Unverified Adverse Reaction, Intermediate, nausea, 05/11/17) ofloxacin (Unverified Adverse Reaction, Intermediate, NAUSEA, 05/11/17) nabumetone (Unverified Adverse Reaction, Unknown, nausea, 05/11/17) Family History Hypertension Social History Used to smoke up until 2006; denies ever using drugs, denies drinking alcohol Physical Exam Vital Signs Vital Signs Date Time Temp Pulse Resp B/P (MAP) Pulse Ox O2 Delivery O2 Flow Rate FiO2 05/12/17 04:00 99.8 101 16 112/59 (76) 97 05/12/17 00:00 99.8 16 16 109/53 (71) 99 05/12/17 00:00 99 Room Air 05/11/17 22:00 95 21 05/11/17 21:35 102 20 110/58 (75) 98 05/11/17 21:00 100.2 99 20 104/59 (74) 94 05/11/17 20:28 100.5 98 16 117/56 (76) 96 05/11/17 19:45 102.6 104 18 146/74 (98) 94 Room Air 05/11/17 19:41 18 05/11/17 19:39 102.6 104 18 148/74 (98) 94 05/11/17 18:26 18 05/11/17 18:09 90 18 145/71 (95) 96 05/11/17 16:49 99.6 111 16 155/76 (102) 98 Physical Exam VS: afebrile GENERAL: 51-year-old white female, obese, awake, lying in bed, appears exhausted SKIN: Warm and dry. EYES: No scleral icterus. No injection or drainage. ENT: No nasal bleeding or discharge. Mucous membranes pink and moist. CARDIOVASCULAR: Regular rate and rhythm. no murmurs RESPIRATORY: No accessory muscle use. Bibasilar crackles and rhonchi GASTROINTESTINAL: Obese abdomen, soft, nontender, nondistended Extremities: No clubbing, cyanosis, or edema. No obvious deformities. MUSCULOSKELETAL: grossly intact ROM with 4/5 strength in upper and lower extremities proximally; adequate muscle bulk and tone for age and habitus NEUROLOGICAL: Awake and alert. No obvious cranial nerve deficits. No facial droop nor slurred speech noted. PSYCHIATRIC: Appropriate mood and affect; insight and judgment normal. Laboratory Laboratory Tests Test 05/11/17 17:40 05/11/17 18:05 05/11/17 20:50 05/12/17 01:30 White Blood Count 11.6 Red Blood Count 4.74 Hemoglobin 13.6 Hematocrit 40.5 Mean Corpuscular Volume 85.4 Mean Corpuscular Hemoglobin 28.8 Mean Corpuscular Hemoglobin Concent 33.7 Red Cell Distribution Width 11.6 Platelet Count 239 Mean Platelet Volume 6.5 Neutrophils (%) (Auto) 92.5 Lymphocytes (%) (Auto) 2.9 Monocytes (%) (Auto) 4.1 Eosinophils (%) (Auto) 0.3 Basophils (%) (Auto) 0.2 Neutrophils # (Auto) 10.8 Lymphocytes # (Auto) 0.3 Monocytes # (Auto) 0.5 Eosinophils # (Auto) 0.0 Basophils # (Auto) 0.0 CBC Comment DIFF FINAL Differential Comment Prothrombin Time 10.0 Prothromb Time International Ratio 1.0 Activated Partial Thromboplast Time 28.1 Blood Urea Nitrogen 7 Creatinine 0.85 Random Glucose 114 Total Protein 7.7 Albumin 3.9 Calcium Level 8.6 Alkaline Phosphatase 63 Aspartate Amino Transf (AST/SGOT) 20 Alanine Aminotransferase (ALT/SGPT) 32 Total Bilirubin 0.5 Sodium Level 134 Potassium Level 3.5 Chloride Level 99 Carbon Dioxide Level 24.9 Anion Gap 10 Estimat Glomerular Filtration Rate 70 Lipase 96 Urine Color YELLOW Urine Turbidity CLEAR Urine pH 7.0 Urine Specific [place] 1.020 Urine Protein NEG Urine Glucose (UA) NEG Urine Ketones TRACE Urine Occult Blood NEG Urine Nitrite NEG Urine Bilirubin NEG Urine Leukocyte Esterase NEG Urine RBC 0-3 Urine WBC 0-2 Urine Squamous Epithelial Cells 0-5 Microscopic Urinalysis Comment CULT NOT INDICATED Lactic Acid Level 2.9 3.6 Test 05/12/17 04:18 White Blood Count 8.8 Red Blood Count 4.10 Hemoglobin 11.9 Hematocrit 35.7 Mean Corpuscular Volume 87.0 Mean Corpuscular Hemoglobin 29.0 Mean Corpuscular Hemoglobin Concent 33.3 Red Cell Distribution Width 12.0 Platelet Count 218 Mean Platelet Volume 7.1 Neutrophils (%) (Auto) 86.6 Lymphocytes (%) (Auto) 6.6 Monocytes (%) (Auto) 6.5 Eosinophils (%) (Auto) 0.1 Basophils (%) (Auto) 0.2 Neutrophils # (Auto) 7.6 Lymphocytes # (Auto) 0.6 Monocytes # (Auto) 0.6 Eosinophils # (Auto) 0.0 Basophils # (Auto) 0.0 CBC Comment DIFF FINAL Differential Comment Blood Urea Nitrogen 8 Creatinine 0.79 Random Glucose 118 Calcium Level 8.1 Sodium Level 140 Potassium Level 3.4 Chloride Level 105 Carbon Dioxide Level 27.2 Anion Gap 8 Estimat Glomerular Filtration Rate 76 Lactic Acid Level 4.5 Date/Time Source Procedure Growth Status 05/11/17 19:55 Blood Peripheral Aerobic Blood Culture Pending Received 05/11/17 19:55 Blood Peripheral Anaerobic Blood Culture Pending Received 05/11/17 17:25 Nasal Washing Influenza Types A,B Antigen (VIRA) - Final NEGATIVE FOR FLU A AND B ANTIGEN.... Complete Result Diagram: 05/12/1741705/12/17417 Caprini VTE Risk Assessment Caprini VTE Risk Assessment: Mod/High Risk (score >= 2) Caprini Risk Assessment Model Point Value = 1 Point Value = 2 Point Value = 3 Point Value = 5 Age 41-60 Minor surgery BMI > 25 kg/m2 Swollen legs Varicose veins or History of unexplained or recurrent spontaneous Oral contraceptives or hormone replacement Sepsis (< 1 month) Serious lung disease, including pneumonia (< 1 month) Abnormal pulmonary function Acute myocardial infarction Congestive heart failure (< 1 month) History of inflammatory bowel disease Medical patient at bed rest Age 61-74 Arthroscopic surgery Major open surgery (> 45 min) Laparoscopic surgery (> 45 min) Malignancy Confined to bed (> 72 hours) Immobilizing plaster cast Central venous access Age >= 75 History of VTE Family history of VTE Factor V Leiden Prothrombin [id number] Lupus anticoagulant Anticardiolipin antibodies Elevated serum homocysteine Heparin-induced thrombocytopenia Other congenital or acquired thrombophilia Stroke (< 1 month) Elective arthroplasty Hip, pelvis, or leg fracture Acute spinal cord injury (< 1 month) Prophylaxis Regimen Total Risk Factor Score Risk Level Prophylaxis Regimen 0-1 Low Early ambulation 2 Moderate Order ONE of the following: *Sequential Compression Device (SCD) *Heparin 5000 units SQ BID 3-4 Higher Order ONE of the following medications: *Heparin 5000 units SQ TID *Enoxaparin/Lovenox 40 mg SQ daily (WT < 150 kg, CrCl > 30 mL/min) *Enoxaparin/Lovenox 30 mg SQ daily (WT < 150 kg, CrCl > 10-29 mL/min) *Enoxaparin/Lovenox 30 mg SQ BID (WT < 150 kg, CrCl > 30 mL/min) AND/OR *Sequential Compression Device (SCD) 5 or more Highest Order ONE of the following medications: *Heparin 5000 units SQ TID (Preferred with Epidurals) *Enoxaparin/Lovenox 40 mg SQ daily (WT < 150 kg, CrCl > 30 mL/min) *Enoxaparin/Lovenox 30 mg SQ daily (WT < 150 kg, CrCl > 10-29 mL/min) *Enoxaparin/Lovenox 30 mg SQ BID (WT < 150 kg, CrCl > 30 mL/min) AND *Sequential Compression Device (SCD) Assessment and Plan Assessment and Plan 51-year-old white female admitted for sepsis secondary to pneumonia - I independently reviewed the CT scan which shows a consolidation on the left lung. Fever significantly improved after starting clindamycin and azithromycin , continue with current antibiotics. UA is neg; BC's pending. - Obtain pneumococcal and Legionella urinary antigens as well as sputum Gram stain - Starting Mucomyst with duo nebs - Lactic acid was consistently climbing, we'll repeat lactic acid with recall. Patient did receive 2500 MLS of normal saline bolus, currently has been receiving infusion since then Lactic acidosis - Multifactorial from sepsis and dehydration, being hydrated aggressively as above Hepatomegaly likely from fatty liver Lovenox Physician Certification 2 Midnight Certification Type: Admission for Inpatient Services Order for Inpatient Services The services are ordered in accordance with Medicare regulations or non- Medicare payer requirements, as applicable. In the case of services not specified as inpatient-only, they are appropriately provided as inpatient services in accordance with the 2-midnight benchmark. Estimated LOS (days): 2 2 days is the estimated time the patient will need to remain in the hospital, assuming treatment plan goals are met and no additional complications. Post-Hospital Plan: Not yet determined Lawson Wise MD May 12, 2017 09:49
[2017-05-12] MEDS: RESP: ALBUTEROL 2.5 MG/IPRATROPIUM 0.5 MG NEB (SCH) NEB ×3 (10:21→19:56)
[2017-05-12] MEDS: RESP: ACETYLCYSTEINE 10% 10 ML NEB NEB SCH ×3 (10:30→19:56)
[2017-05-12] MEDS: guaiFENesin E.R. 600 MG TAB PO SCH ×2 (10:57→20:30)
[2017-05-12] MEDS: ENOXAPARIN SODIUM 30 MG/0.3 ML SYRINGE SQ SCH (10:58)
[2017-05-12] MEDS ORDERED: NAPROXEN 250 MG TAB PO PRN (11:00)
[2017-05-12] MEDS ORDERED: NAPROXEN 500 MG TAB PO ONE (11:00)
[2017-05-12 11:03] LABS: LACTIC ACID SEPSIS PROTOCOL 3.2 mmol/L (0.4-2.0)
[2017-05-12] MEDS: ONDANSETRON HCL 4 MG/2 ML VIAL IV PUSH PRN (18:03)
[2017-05-12] MEDS: CLINDAMYCIN 600 MG/NS PREMIX 50 ML IV SCH ×2 (18:04→23:58)
[2017-05-12] MEDS: AZITHROMYCIN INJ 500 MG in SODIUM CHLOR 0.9% 250 ML INJ 250 ML IV SCH (20:24)
[2017-05-12] MEDS: ENOXAPARIN SODIUM 40 MG/0.4 ML SYRINGE SQ SCH (20:31)
[2017-05-13] VITALS (7 sets, daily range): BP systolic 123–144; BP diastolic 72–86; PULSE 74–86; RESP 18–20; TEMP 98.4–99.8; O2SAT 92–96
[2017-05-13] MEDS: TRIMETHOBENZAMIDE INJ 200 MG/2 ML VIAL IM PRN (04:37)
[2017-05-13] MEDS: AZTREONAM INJ 2,000 MG in SODIUM CHLORIDE 0.9% INJ 100 ML IV SCH ×3 (04:38→22:24)
[2017-05-13] MEDS: oxyCODONE/ACETAMINOPHEN 7.5 MG/325 MG TAB PO PRN (04:45)
[2017-05-13] MEDS: CLINDAMYCIN 600 MG/NS PREMIX 50 ML IV SCH ×3 (05:26→17:07)
[2017-05-13] MEDS: metroNIDAZOLE 500 MG INJ 100 ML IV SCH ×3 (06:22→22:24)
[2017-05-13] MEDS: SODIUM CHLOR 0.9% 1000 ML INJ 1,000 ML IV SCH ×2 (06:23→11:32)
[2017-05-13] MEDS: RESP: ALBUTEROL 2.5 MG/IPRATROPIUM 0.5 MG NEB (SCH) NEB ×3 (08:15→21:18)
[2017-05-13] MEDS: RESP: ACETYLCYSTEINE 10% 10 ML NEB NEB SCH ×3 (08:15→21:18)
[2017-05-13] MEDS: ENOXAPARIN SODIUM 30 MG/0.3 ML SYRINGE SQ SCH (08:46)
[2017-05-13] MEDS: guaiFENesin E.R. 600 MG TAB PO SCH ×2 (08:46→20:30)
[2017-05-13] MEDS: SODIUM CHLORIDE 0.9% FLUSH 10 ML FLUSH IV FLUSH SCH ×2 (08:46→20:31)
--- NOTE | 2017-05-13 10:29 | HHI.PR ---
Subjective Remarks Nursing denies any deterioration overnight. Patient herself says her nausea and dry heaving have significantly improved. She says she feels much better since admission. Objective Vital Signs Date Time Temp Pulse Resp B/P (MAP) Pulse Ox O2 Delivery O2 Flow Rate FiO2 05/13/17 08:00 98.4 74 18 123/83 (96) 94 05/13/17 08:00 95 21 05/13/17 04:00 98.8 76 20 124/76 (92) 94 05/13/17 00:00 99.8 86 20 123/72 (89) 94 05/12/17 20:00 92 Room Air 05/12/17 20:00 99.6 98 20 137/77 (97) 92 05/12/17 20:00 86 05/12/17 19:56 94 21 05/12/17 16:00 99.6 94 15 115/65 (82) 96 05/12/17 12:00 100.0 88 18 110/59 (76) 95 I/O 05/12/17 05/12/17 05/12/17 05/13/17 05/13/17 05/13/17 07:00 15:00 23:00 07:00 15:00 23:00 Intake Total 5255 ml 1200 ml 1315 ml 1259 ml 100 ml Output Total 300 ml 875 ml Balance 4955 ml 1200 ml 1315 ml 384 ml 100 ml Intake Oral 240 ml 0 ml IV Total 5015 ml 1200 ml 1315 ml 1259 ml 100 ml Output Urine Total 300 ml 875 ml # Voids 6 2 3 # Bowel Movements 0 Result Diagram: 05/12/17 0418 05/12/17 0418 Objective Remarks Coarse breath sounds with some crackles in bilateral bases, unlabored breathing , no coughing upon examination Abdomen soft, nondistended A/P Assessment and Plan 51-year-old white female admitted for sepsis secondary to pneumonia - Improving clinically, continue clindamycin and azithromycin - pneumococcal and Legionella urinary antigens as well as sputum Gram stain - negative so far, blood cultures negative 1 - Mucomyst with duo nebs Lactic acidosis - Multifactorial from sepsis and dehydration, being hydrated aggressively as above - repeating today along w/ BMP, should be improving w/ fluids Hepatomegaly likely from fatty liver Lawson Patel MD May 13, 2017 10:29
[2017-05-13 11:44] LABS: BICARBONATE 27.9 MEQ/L (21.0-32.0); CALCIUM 7.8 MG/DL (8.5-10.1)
[2017-05-13 11:47] LABS: CREATININE 0.54 MG/DL (0.50-1.00)
[2017-05-13] MEDS: ONDANSETRON HCL 4 MG/2 ML VIAL IV PUSH PRN ×2 (14:30→20:31)
[2017-05-13] MEDS: hydrOXYzine PAMOATE 25 MG CAP PO PRN (14:34)
[2017-05-13] MEDS ORDERED: PETROLEUM/SHARK LIVER OIL/PHENYLEPHRINE 60 GM TUBE RECTAL PRN (15:30)
[2017-05-13] MEDS: AZITHROMYCIN INJ 500 MG in SODIUM CHLOR 0.9% 250 ML INJ 250 ML IV SCH (20:30)
[2017-05-14] VITALS (8 sets, daily range): BP systolic 118–142; BP diastolic 66–83; PULSE 76–92; RESP 18–20; TEMP 97.7–99.5; O2SAT 90–99
[2017-05-14] MEDS: CLINDAMYCIN 600 MG/NS PREMIX 50 ML IV SCH ×3 (01:11→12:19)
[2017-05-14] MEDS: hydrOXYzine PAMOATE 25 MG CAP PO PRN ×2 (01:18→08:21)
[2017-05-14] MEDS: AZTREONAM INJ 2,000 MG in SODIUM CHLORIDE 0.9% INJ 100 ML IV SCH ×3 (05:48→21:48)
[2017-05-14] MEDS: SODIUM CHLOR 0.9% 1000 ML INJ 1,000 ML IV SCH ×3 (05:48→21:51)
[2017-05-14] MEDS: metroNIDAZOLE 500 MG INJ 100 ML IV SCH (06:22)
[2017-05-14] MEDS: RESP: ALBUTEROL 2.5 MG/IPRATROPIUM 0.5 MG NEB (SCH) NEB ×3 (07:43→20:04)
[2017-05-14] MEDS: RESP: ACETYLCYSTEINE 10% 10 ML NEB NEB SCH ×4 (07:44→20:04)
[2017-05-14] MEDS: SODIUM CHLORIDE 0.9% FLUSH 10 ML FLUSH IV FLUSH SCH ×2 (08:18→21:00)
[2017-05-14] MEDS: guaiFENesin E.R. 600 MG TAB PO SCH ×2 (08:22→21:49)
[2017-05-14] MEDS: oxyCODONE/ACETAMINOPHEN 7.5 MG/325 MG TAB PO PRN ×2 (08:27→22:03)
[2017-05-14] MEDS: ENOXAPARIN SODIUM 30 MG/0.3 ML SYRINGE SQ SCH (10:00)
--- NOTE | 2017-05-14 12:04 | RADRPT ---
EXAM DATE/TIME: 05/14/2017 11:45 [facility] COMPARISON: CHEST SINGLE AP, May 11, 2017, 20:17. INDICATIONS : Short of breath since yesterday. Evaluate for pneumonia. MEDICAL HISTORY : Gastroesophageal reflux disease. Hernia, inguinal. SURGICAL HISTORY : Inguinal hernia repair. Gender reassignment surgery. ENCOUNTER: Subsequent ACUITY: 3 days PAIN SCORE: 0/10 LOCATION: Bilateral chest FINDINGS: PA and lateral views of the chest. Increased confluent opacity at the left lung base. On the lateral view this appears to involve the lingula and left lower lobe. No evidence of pleural effusion or pneu mothorax. Cardiomediastinal silhouette within normal limits. CONCLUSION: Increased left lower lung consolidation. Skinny Kirby MD on May 14, 2017 at 12:01 Board Certified Radiologist. This report was verified electronically.
[2017-05-14] MEDS: methylPREDNISolone SOD SUCC 125 MG/2 ML VIAL IV PUSH SCH ×3 (12:19→22:02)
[2017-05-14] MEDS ORDERED: Vancomycin Consult Pharmacy 1 EA OTHER SCH (12:45)
--- NOTE | 2017-05-14 12:49 | HHI.PR ---
Subjective Remarks Nursing reports patient having some diarrhea. Patient herself says she's had intermittent changes in the consistency of her stools. But says she has an increased appetite today, no nausea, vomiting, denies any shortness of breath or worsening cough. Objective Vital Signs Date Time Temp Pulse Resp B/P (MAP) Pulse Ox O2 Delivery O2 Flow Rate FiO2 05/14/17 08:25 Room Air 05/14/17 08:00 98.5 87 18 142/74 (96) 92 05/14/17 04:00 99.5 82 20 130/83 (99) 90 05/14/17 00:00 99.1 92 20 128/82 (97) 93 05/13/17 21:20 94 21 05/13/17 20:00 98.9 83 20 133/86 (102) 92 05/13/17 20:00 Room Air 2.00 21 05/13/17 20:00 79 05/13/17 16:00 99.0 81 20 138/82 (100) 96 I/O 05/13/17 05/13/17 05/13/17 05/14/17 05/14/17 05/14/17 07:00 15:00 23:00 07:00 15:00 23:00 Intake Total 1259 ml 3100 ml 400 ml 1843 ml 100 ml Output Total 875 ml 1000 ml Balance 384 ml 3100 ml -600 ml 1843 ml 100 ml Intake Oral 0 ml 650 ml 360 ml IV Total 1259 ml 2450 ml 400 ml 1483 ml 100 ml Output Urine Total 875 ml 1000 ml # Voids 3 6 2 6 # Bowel Movements 0 1 1 4 Result Diagram: 05/12/17 0418 05/13/17 1116 Objective Remarks Increased crackles in left lower lung field Unlabored breathing otherwise Heart sounds are regular rate and rhythm, no murmurs A/P Assessment and Plan 51-year-old white female admitted for sepsis secondary to pneumonia - Clinically patient's pneumonia is actually worsening, chest x-ray obtained which I independently reviewed and shows increased consolidation. I will switch antibiotics from azithromycin and clindamycin to cefepime and Levaquin and vancomycin. Adding on solumedrol. Lactic acidosis - resolved Hepatomegaly likely from fatty liver Lawson Patel MD May 14, 2017 12:49
[2017-05-14] MEDS: CEFEPIME INJ 1,000 MG in SODIUM CHLORIDE 0.9% INJ 100 ML IV SCH ×2 (13:30→22:03)
[2017-05-14 13:46] LABS: AUTOMATED NEUTROPHIL # 4.7 TH/MM3 (1.8-7.7); BASOPHIL % 0.3 % (0.0-2.0); EOSINOPHIL % 0.5 % (0.0-4.0); HEMATOCRIT 32.4 % (35.0-46.0); HEMOGLOBIN 10.7 GM/DL (11.6-15.3); LYMPHOCYTE # 0.5 TH/MM3 (1.0-4.8); MEAN CELL VOLUME 87.7 FL (80.0-100.0); MEAN CORPUSCULAR HEMOGLOBIN 28.9 PG (27.0-34.0); MEAN PLATELET VOLUME 6.9 FL (7.0-11.0); MONO % 3.8 % (0.0-8.0); MONOCYTE # 0.2 TH/MM3 (0-0.9); NEUT % 86.4 % (16.0-70.0); PLATELET COUNT 194 TH/MM3 (150-450); RED BLOOD COUNT 3.69 MIL/MM3 (4.00-5.30); RED CELL DISTRIBUTION WIDTH 12.5 % (11.6-17.2); WHITE BLOOD COUNT 5.4 TH/MM3 (4.0-11.0)
[2017-05-14 13:59] LABS: CALCIUM 7.8 MG/DL (8.5-10.1)
[2017-05-14 14:00] LABS: BICARBONATE 29.7 MEQ/L (21.0-32.0)
[2017-05-14] MEDS ORDERED: LEVOFLOXACIN 750 MG PREMIX INJ 150 ML IV SCH (14:00)
[2017-05-14 14:03] LABS: CREATININE 0.59 MG/DL (0.50-1.00)
[2017-05-14] MEDS: VANCOMYCIN INJ 1,500 MG in SODIUM CHLORID 0.9% 500 ML INJ 500 ML IV SCH (15:50)
[2017-05-14] MEDS: LEVOFLOXACIN 750 MG PREMIX INJ 150 ML IV SCH (17:26)
[2017-05-15] VITALS (9 sets, daily range): BP systolic 109–150; BP diastolic 60–81; PULSE 69–97; RESP 16–20; TEMP 97.2–98.9; O2SAT 91–96
[2017-05-15] MEDS ORDERED: POTASSIUM CHLORIDE 20 MEQ CONTROLLED RELEASE TAB PO ONE
[2017-05-15] MEDS ORDERED: PHARMACY ORDERED LAB ONE (02:45)
[2017-05-15] MEDS: VANCOMYCIN INJ 1,500 MG in SODIUM CHLORID 0.9% 500 ML INJ 500 ML IV SCH ×2 (02:57→16:11)
[2017-05-15] MEDS: AZTREONAM INJ 2,000 MG in SODIUM CHLORIDE 0.9% INJ 100 ML IV SCH ×2 (05:09→12:23)
[2017-05-15] MEDS: methylPREDNISolone SOD SUCC 125 MG/2 ML VIAL IV PUSH SCH ×3 (05:09→20:28)
[2017-05-15] MEDS: CEFEPIME INJ 1,000 MG in SODIUM CHLORIDE 0.9% INJ 100 ML IV SCH ×3 (05:09→20:28)
[2017-05-15] MEDS: ONDANSETRON HCL 4 MG/2 ML VIAL IV PUSH PRN (05:22)
[2017-05-15] MEDS: oxyCODONE/ACETAMINOPHEN 7.5 MG/325 MG TAB PO PRN (06:15)
[2017-05-15] MEDS: hydrOXYzine PAMOATE 25 MG CAP PO PRN (06:16)
[2017-05-15] MEDS: RESP: ALBUTEROL 2.5 MG/IPRATROPIUM 0.5 MG NEB (SCH) NEB ×3 (07:24→19:55)
[2017-05-15] MEDS: RESP: ACETYLCYSTEINE 10% 10 ML NEB NEB SCH ×3 (07:26→19:56)
[2017-05-15] MEDS: SODIUM CHLORIDE 0.9% FLUSH 10 ML FLUSH IV FLUSH SCH ×2 (10:10→21:00)
[2017-05-15] MEDS: guaiFENesin E.R. 600 MG TAB PO SCH ×2 (10:10→20:27)
[2017-05-15] MEDS: ENOXAPARIN SODIUM 30 MG/0.3 ML SYRINGE SQ SCH (10:13)
[2017-05-15] MEDS: LACTOBACILLUS ACIDOPHILUS TAB PO SCH ×2 (12:19→20:27)
--- NOTE | 2017-05-15 13:16 | RADRPT ---
EXAM DATE/TIME: 05/15/2017 12:58 [facility] COMPARISON: CHEST PA & LAT, May 14, 2017, 11:45. INDICATIONS : Cough, congestion. MEDICAL HISTORY : Gastroesophageal reflux disease. Hernia, inguinal SURGICAL HISTORY : Inguinal hernia repair. Gender reassignment surgery. ENCOUNTER: Subsequent ACUITY: 4 - 6 days PAIN SCORE: 1/10 LOCATION: Bilateral chest FINDINGS: The examination demonstrates consolidative changes in the lung bases. This would be concerning for pn eumonia. These are similar to previous exam. The heart is normal in size. The osseous structures are intact. CONCLUSION: 1. Patchy infiltrate and consolidative change predominantly in the left lung base. This is concerning for pneumonia. Juanpablo Fermin MD on May 15, 2017 at 13:12 Board Certified Radiologist. This report was verified electronically.
[2017-05-15] MEDS: LEVOFLOXACIN 750 MG PREMIX INJ 150 ML IV SCH (18:57)
--- NOTE | 2017-05-15 19:07 | HHI.PR ---
Subjective Remarks Nursing denies any deterioration since last night except that patient actually sounds as if she has worse crackles today. Patient herself says she feels that she has more energy. Tolerating by mouth intake. Objective Vital Signs Date Time Temp Pulse Resp B/P (MAP) Pulse Ox O2 Delivery O2 Flow Rate FiO2 05/15/17 17:19 97.2 72 16 129/74 (92) 92 05/15/17 14:05 97.4 75 16 141/81 (101) 95 05/15/17 09:55 69 05/15/17 09:44 97.4 84 18 150/79 (102) 92 05/15/17 07:26 92 21 05/15/17 04:00 97.8 69 20 126/77 (93) 92 05/15/17 00:00 98.9 74 20 122/65 (84) 94 05/14/17 20:07 99 21 05/14/17 20:00 98.3 76 20 129/74 (92) 92 05/14/17 20:00 84 I/O 05/14/17 05/14/17 05/14/17 05/15/17 05/15/17 05/15/17 07:00 15:00 23:00 07:00 15:00 23:00 Intake Total 1843 ml 1830 ml 665 ml 600 ml 100 ml 100 ml Output Total 1250 ml Balance 1843 ml 580 ml 665 ml 600 ml 100 ml 100 ml Intake Oral 360 ml 850 ml 600 ml IV Total 1483 ml 980 ml 665 ml 100 ml 100 ml Output Urine Total 1250 ml # Voids 6 5 # Bowel Movements 4 4 0 Result Diagram: 05/14/17 1330 05/14/17 1330 Objective Remarks Unlabored breathing, no cyanosis yet patient has increased crackles in bibasilar lung hernandez A/P Assessment and Plan 51-year-old white female admitted for sepsis secondary to pneumonia Clinically patient's pneumonia continues to worsen even though she feels okay. Chest x-ray does show slight worsening in bilateral bases. Change antibiotics from azithromycin and aztreonam to Levaquin and vancomycin and cefepime. Consulting ID. Neg flu swab. Hepatomegaly likely from fatty liver Lawson Patel MD May 15, 2017 19:07
[2017-05-16] VITALS (7 sets, daily range): BP systolic 126–146; BP diastolic 69–85; PULSE 75–89; RESP 18–21; TEMP 96.5–98.5; O2SAT 91–95
[2017-05-16] MEDS: hydrOXYzine PAMOATE 25 MG CAP PO PRN (01:09)
[2017-05-16] MEDS ORDERED: PHARMACY ORDERED LAB ONE (02:45)
[2017-05-16] MEDS: VANCOMYCIN INJ 1,500 MG in SODIUM CHLORID 0.9% 500 ML INJ 500 ML IV SCH (02:57)
[2017-05-16] MEDS: CEFEPIME INJ 1,000 MG in SODIUM CHLORIDE 0.9% INJ 100 ML IV SCH ×3 (05:11→21:35)
[2017-05-16] MEDS: methylPREDNISolone SOD SUCC 125 MG/2 ML VIAL IV PUSH SCH ×3 (05:11→21:34)
[2017-05-16] MEDS: RESP: ALBUTEROL 2.5 MG/IPRATROPIUM 0.5 MG NEB (PRN) INH ×3 (05:23→19:31)
[2017-05-16] MEDS: RESP: ALBUTEROL 2.5 MG/IPRATROPIUM 0.5 MG NEB (SCH) NEB (07:16)
[2017-05-16] MEDS: RESP: ACETYLCYSTEINE 10% 10 ML NEB NEB SCH ×3 (07:21→19:31)
[2017-05-16] MEDS: guaiFENesin E.R. 600 MG TAB PO SCH ×2 (09:33→21:35)
[2017-05-16] MEDS: LACTOBACILLUS ACIDOPHILUS TAB PO SCH ×2 (09:33→21:35)
[2017-05-16] MEDS: FUROSEMIDE 20 MG/2 ML VIAL IV PUSH SCH ×2 (09:34→18:24)
[2017-05-16] MEDS: SODIUM CHLORIDE 0.9% FLUSH 10 ML FLUSH IV FLUSH SCH ×2 (09:34→21:35)
[2017-05-16] MEDS: ENOXAPARIN SODIUM 30 MG/0.3 ML SYRINGE SQ SCH (09:40)
[2017-05-16] MEDS: VANCOMYCIN INJ 2,000 MG in SODIUM CHLORID 0.9% 500 ML INJ 500 ML IV SCH (15:51)
--- NOTE | 2017-05-16 17:55 | PD.CONS ---
History of Present Illness Service ID CONSULT DR CHANG Consult Requested By DR JAMIL Reason for Consult WORSENING PNEUMONIA Primary Care Physician Darvin Durand MD (Paul) Diagnoses: (1) Pneumonia (2) Sepsis History of Present Illness 51 YR OLD FEMALE ADMITTED WITH SHORTNESS OF BREATH AND COUGH. SHE HAS A HISTORY OF SMOKING OFF / ON. STATES SHE WILL HAVE A CIGARETTE ON AN OCCASION. SHE [facility]REQUENTS [facility] EVERY THURSDAY TO VISIT THE SICK FROM HER RELIGION. THURSDAY HOWEVER SHE DID NOT GO BECAUSE SHE STARTED TO HAVE SWEATS, AND FATIGUE, THURSDAY SHE HAD ACHES FOLLOWED BY NAUSEA AND VOMITING. SHE FELT FLU LIKE SYMPTOMS AND CAME TO ER. CHEST X RAY SHOWED LEFT INFILTRATE AND SHE WAS ADMITTED AND STARTED ON CLEOCIN AND ZITHROMAX. FLU WAS NEGATIVE. HER BREATHING HOWEVER WAS NOT BETTER AND THUS ID CONSULTED. SHE WAS STARTED ON LEVAQUIN,CEFEPIME, AND VANCOMYCIN. SHE FEELS WEAK. NO HEMOPTYSIS. SHE HAS NO DENTAL PROBLEMS. NO HISTORY OF IVDA. Review of Systems Constitutional: COMPLAINS OF: Fatigue, Chills Respiratory: COMPLAINS OF: Cough, Sputum production, Shortness of breath Gastrointestinal: COMPLAINS OF: Diarrhea, Nausea, Vomiting Past Family Social History Allergies: Coded Allergies: ampicillin (Unverified Allergy, Severe, RASH, 05/11/17) diazepam (Unverified Allergy, Severe, DIZZY, 05/11/17) sulfamethoxazole (Unverified Allergy, Severe, 05/11/17) trimethoprim (Unverified Allergy, Severe, 05/11/17) Sulfa (Sulfonamide Antibiotics) (Unverified Allergy, Intermediate, nausea , 05/11/17) terazosin (Unverified Adverse Reaction, Severe, made me feel bad to stop it, 05/11/17) diflunisal (Unverified Adverse Reaction, Intermediate, nausea, 05/11/17) ofloxacin (Unverified Adverse Reaction, Intermediate, NAUSEA, 05/11/17) nabumetone (Unverified Adverse Reaction, Unknown, nausea, 05/11/17) Past Medical History Past Medical History Denies any past medical history regarding liver disease Past Surgical History Past Surgical History Multiple hernia surgeries Reported Medications Allergies: Coded Allergies: ampicillin (Unverified Allergy, Severe, RASH, 05/11/17) diazepam (Unverified Allergy, Severe, DIZZY, 05/11/17) sulfamethoxazole (Unverified Allergy, Severe, 05/11/17) trimethoprim (Unverified Allergy, Severe, 05/11/17) Sulfa (Sulfonamide Antibiotics) (Unverified Allergy, Intermediate, nausea , 05/11/17) terazosin (Unverified Adverse Reaction, Severe, made me feel bad to stop it, 05/11/17) diflunisal (Unverified Adverse Reaction, Intermediate, nausea, 05/11/17) ofloxacin (Unverified Adverse Reaction, Intermediate, NAUSEA, 05/11/17) nabumetone (Unverified Adverse Reaction, Unknown, nausea, 05/11/17) Family History Family History Hypertension Social History Social History Used to smoke up until 2006; denies ever using drugs, denies drinking alcohol Physical Exam Vital Signs Vital Signs Date Time Temp Pulse Resp B/P (MAP) Pulse Ox O2 Delivery O2 Flow Rate FiO2 05/16/17 16:00 96.5 80 20 146/74 (98) 92 05/16/17 12:00 98.0 78 20 126/69 (88) 92 05/16/17 08:00 97.2 89 20 139/70 (93) 93 05/16/17 07:21 91 21 05/16/17 00:00 98.5 75 18 140/85 (103) 93 05/15/17 20:00 98.4 97 20 109/60 (76) 91 05/15/17 19:58 96 21 Physical Exam GENERAL: This is a patient, in no apparent distress appears older than SKIN: No rashes, ecchymoses or lesions. Cool and dry. HEAD: Atraumatic. Normocephalic. No temporal or scalp tenderness. EYES: Pupils equal round and reactive. Extraocular motions intact. No scleral icterus. No injection or drainage. ENT: Nose without bleeding, purulent drainage or septal hematoma. Throat without erythema, tonsillar hypertrophy or exudate. Uvula midline. Airway patent. NECK: Trachea midline. No JVD or lymphadenopathy. Supple, nontender, no meningeal signs. CARDIOVASCULAR: Regular rate and rhythm without murmurs, gallops, or rubs. RESPIRATORY: Lungs are coarse and equal , diminished basis GASTROINTESTINAL: Abdomen soft, non-tender, nondistended. No hepato-splenomegaly , or palpable masses. No guarding. MUSCULOSKELETAL: Extremities without clubbing, cyanosis, or edema. No joint tenderness, effusion, or edema noted. No calf tenderness. Negative Homans sign bilaterally. NEUROLOGICAL: Awake and alert. Cranial nerves II through XII intact. Motor and sensory grossly within normal limits. Five out of 5 muscle strength in all muscle groups. Normal speech. Laboratory Laboratory Tests Test 05/16/17 02:45 Vancomycin Level Trough 6.2 Date/Time Source Procedure Growth Status 05/11/17 19:55 Blood Peripheral Aerobic Blood Culture - Final NO GROWTH IN 5 DAYS Complete 05/11/17 19:55 Blood Peripheral Anaerobic Blood Culture - Final NO GROWTH IN 5 DAYS Complete 05/12/17 10:30 Sputum Expectorated Sputum Gram Stain - Final Complete 05/12/17 10:30 Sputum Expectorated Sputum Sputum Culture - Final HEAVY GROWTH NORMAL RESPIRATORY PRINCESS Complete 05/11/17 18:08 Urine Random Urine Legionella Antigen - Final PRESUMPTIVE NEGATIVE FOR LEGIONELLA P... Complete 05/11/17 18:08 Urine Random Urine Streptococcus pneumoniae Antigen (M - Final PRESUMPTIVE NEGATIVE FOR STREPTOCOCCU... Complete Result Diagram: 05/14/17 1330 05/14/17 1330 Assessment and Plan Problem List: (1) Pneumonia ICD Codes: J18.9 - Pneumonia, unspecified organism Status: Acute Plan: PT WITH COMMUNITY ACQUIRED PNEUMONIA SHE HAS BEEN EXPOSED TO HEALTH CARE ACQUIRED PATHOGENS SO WOULD COVER THAT, SHE HAS BEEN STARTED ON LEVAQUIN/CEFEPIME AND VANCOMYCIN SO WOULD CONTINUE AND FU IF NOT BETTER WOULD CHECK A CT CHEST FU (2) Sepsis ICD Codes: A41.9 - Sepsis, unspecified organism Status: Acute Problem Qualifiers (1) Pneumonia: Qualified Codes: J18.1 - Lobar pneumonia, unspecified organism (2) Sepsis: Qualified Codes: A41.9 - Sepsis, unspecified organism Lisandra Farias May 16, 2017 17:55
[2017-05-16] MEDS: oxyCODONE/ACETAMINOPHEN 7.5 MG/325 MG TAB PO PRN (18:21)
[2017-05-16] MEDS: LEVOFLOXACIN 750 MG PREMIX INJ 150 ML IV SCH (18:24)
--- NOTE | 2017-05-16 19:55 | HHI.PR ---
Subjective Remarks Nursing denies any deterioration since last night. Patient states she feels even better today. Denies any issues with shortness of breath or worsening cough today. Objective Vital Signs Date Time Temp Pulse Resp B/P (MAP) Pulse Ox O2 Delivery O2 Flow Rate FiO2 05/16/17 19:33 95 21 05/16/17 16:00 96.5 80 20 146/74 (98) 92 05/16/17 12:00 98.0 78 20 126/69 (88) 92 05/16/17 08:00 97.2 89 20 139/70 (93) 93 05/16/17 07:21 91 21 05/16/17 00:00 98.5 75 18 140/85 (103) 93 05/15/17 20:00 98.4 97 20 109/60 (76) 91 05/15/17 19:58 96 21 I/O 05/15/17 05/15/17 05/15/17 05/16/17 05/16/17 05/16/17 07:00 15:00 23:00 07:00 15:00 23:00 Intake Total 600 ml 100 ml 715 ml 515 ml 700 ml 610 ml Balance 600 ml 100 ml 715 ml 515 ml 700 ml 610 ml Intake Oral 600 ml 600 ml 90 ml IV Total 100 ml 715 ml 515 ml 100 ml 520 ml # Voids 5 5 2 # Bowel Movements 0 1 Result Diagram: 05/14/17 1330 05/14/17 1330 Objective Remarks right-sided sounds better today but the patient's left side still has unchanged crackles from yesterday that are pretty prominent Unlabored breathing, no cyanosis A/P Assessment and Plan 51-year-old white female admitted for sepsis secondary to pneumonia Clinically patient's pneumonia continues to sound worse - even though she feels okay. Chest x-ray from yesterday does show slight worsening in bilateral bases. Pending infectious disease consult. On vancomycin, Levaquin, and cefepime. Hepatomegaly likely from fatty liver Lawson Patel MD May 16, 2017 19:55
[2017-05-17] VITALS (7 sets, daily range): BP systolic 134–157; BP diastolic 72–83; PULSE 66–83; RESP 20–23; TEMP 96.2–97.5; O2SAT 91–95
[2017-05-17] MEDS: RESP: ALBUTEROL 2.5 MG/IPRATROPIUM 0.5 MG NEB (PRN) INH ×3 (00:19→21:21)
[2017-05-17] MEDS: hydrOXYzine PAMOATE 25 MG CAP PO PRN (00:32)
[2017-05-17] MEDS: SODIUM CHLORIDE 0.9% FLUSH 10 ML FLUSH IV FLUSH PRN (03:59)
[2017-05-17] MEDS: VANCOMYCIN INJ 2,000 MG in SODIUM CHLORID 0.9% 500 ML INJ 500 ML IV SCH ×2 (03:59→15:50)
[2017-05-17] MEDS: CEFEPIME INJ 1,000 MG in SODIUM CHLORIDE 0.9% INJ 100 ML IV SCH ×3 (06:22→21:02)
[2017-05-17] MEDS: methylPREDNISolone SOD SUCC 125 MG/2 ML VIAL IV PUSH SCH ×3 (06:22→21:12)
[2017-05-17] MEDS: RESP: ACETYLCYSTEINE 10% 10 ML NEB NEB SCH ×3 (08:00→21:21)
[2017-05-17] MEDS: ENOXAPARIN SODIUM 30 MG/0.3 ML SYRINGE SQ SCH (08:15)
[2017-05-17] MEDS: LACTOBACILLUS ACIDOPHILUS TAB PO SCH ×2 (09:51→21:12)
[2017-05-17] MEDS: guaiFENesin E.R. 600 MG TAB PO SCH ×2 (09:51→21:12)
[2017-05-17] MEDS: FUROSEMIDE 20 MG/2 ML VIAL IV PUSH SCH ×2 (09:51→18:25)
[2017-05-17] MEDS: SODIUM CHLORIDE 0.9% FLUSH 10 ML FLUSH IV FLUSH SCH ×2 (09:52→21:12)
[2017-05-17] MEDS ORDERED: CALCIUM CARBONATE 500 MG CHEWABLE TAB CHEW ONE (10:00)
[2017-05-17] MEDS ORDERED: FAMOTIDINE 20 MG TAB PO ONE (10:00)
[2017-05-17 11:57] LABS: CREATININE 0.67 MG/DL (0.50-1.00)
[2017-05-17] MEDS ORDERED: SODIUM CHLORID 0.9% 500 ML INJ 500 ML IV ONE (14:45)
[2017-05-17] MEDS ORDERED: POTASSIUM CHLORIDE 10 MEQ CONTROLLED RELEASE TAB PO ONE (14:45)
[2017-05-17 15:20] LABS: BICARBONATE 27.5 MEQ/L (21.0-32.0); CALCIUM 8.8 MG/DL (8.5-10.1)
[2017-05-17] MEDS ORDERED: IOHEXOL 350 MG/ML 10 ML VIAL (for RAD DIAG) IVCONTRAST ONE (16:10)
--- NOTE | 2017-05-17 16:43 | RADRPT ---
EXAM DATE/TIME: 05/17/2017 15:57 [facility] COMPARISON: No previous studies available for comparison. INDICATIONS : Pneumonia. Productive cough. IV CONTRAST: 60 cc Omnipaque 350 (iohexol) IV RADIATION DOSE: 19.84 CTDIvol (mGy) MEDICAL HISTORY : Hypercholesterolemia. Gastroesophageal reflux disease. Hernia, inguinal. SURGICAL HISTORY : Inguinal hernia repair. Gender reassignment surgery. ENCOUNTER: Initial ACUITY: 4 - 6 days PAIN SCALE: 0/10 LOCATION: chest TECHNIQUE: Volumetric scanning of the chest was performed. Using automated exposure control and adjustment of t he mA and/or kV according to patient size, radiation dose was kept as low as reasonably achievable to obtain optimal diagnostic quality images. DICOM format image data is available electronically for review and comparison. Follow-up recommendations for detected pulmonary nodules are based at a minimum on nodule size and pa tient risk factors according to Fleischner Society Guidelines. FINDINGS: Bilateral airspace disease present, right upper lobe/perihilar and left lower lobe. There is a tiny l eft pleural effusion. No pneumothorax. No mass lesion demonstrated. No lymphadenopathy. Normal heart size. The liver is fatty infiltrated. CONCLUSION: Bilateral pneumonia that appears most likely infectious, upper lobe predominant on the right and lowe r lobe predominant on the left. There is also a small left pleural effusion. Ryne Rebollar MD on May 17, 2017 at 16:39 Board Certified Radiologist. This report was verified electronically.
--- NOTE | 2017-05-17 18:05 | HHI.IDPN ---
Subjective Subjective Remarks ID FU DR CHANG + SOB + FATIGUE + NO FEVERS Allergies: Coded Allergies: ampicillin (Unverified Allergy, Severe, RASH, 05/11/17) diazepam (Unverified Allergy, Severe, DIZZY, 05/11/17) sulfamethoxazole (Unverified Allergy, Severe, 05/11/17) trimethoprim (Unverified Allergy, Severe, 05/11/17) Sulfa (Sulfonamide Antibiotics) (Unverified Allergy, Intermediate, nausea , 05/11/17) terazosin (Unverified Adverse Reaction, Severe, made me feel bad to stop it, 05/11/17) diflunisal (Unverified Adverse Reaction, Intermediate, nausea, 05/11/17) ofloxacin (Unverified Adverse Reaction, Intermediate, NAUSEA, 05/11/17) nabumetone (Unverified Adverse Reaction, Unknown, nausea, 05/11/17) Review of Systems Constitutional Constitutional: Fatigue Musculoskeletal Musculoskeletal: Weakness Objective . Vital Signs Date Time Temp Pulse Resp B/P (MAP) Pulse Ox O2 Delivery O2 Flow Rate FiO2 05/17/17 16:00 97.5 83 20 142/73 (96) 91 05/17/17 14:55 93 21 05/17/17 12:00 96.2 73 20 157/80 (105) 93 05/17/17 08:00 96.7 66 20 134/75 (94) 93 05/17/17 00:00 96.2 76 20 135/72 (93) 92 05/16/17 20:00 97.1 85 21 129/69 (89) 92 05/16/17 19:33 95 21 05/17/17 05/17/17 05/18/17 15:00 23:00 07:00 Intake Total 1060 ml Balance 1060 ml Intake Oral 960 ml IV Total 100 ml # Voids 3 . Laboratory Tests Test 05/17/17 11:22 Blood Urea Nitrogen 15 MG/DL Creatinine 0.67 MG/DL Random Glucose 136 MG/DL Calcium Level 8.8 MG/DL Sodium Level 139 MEQ/L Potassium Level 3.3 MEQ/L Chloride Level 102 MEQ/L Carbon Dioxide Level 27.5 MEQ/L Anion Gap 10 MEQ/L Estimat Glomerular Filtration Rate 92 ML/MIN Physical Exam GENERAL: This is a patient, in no apparent distress appears older than SKIN: No rashes, ecchymoses or lesions. Cool and dry. HEAD: Atraumatic. Normocephalic. No temporal or scalp tenderness. EYES: Pupils equal round and reactive. Extraocular motions intact. No scleral icterus. No injection or drainage. NECK: Trachea midline. No JVD or lymphadenopathy. Supple, nontender, no meningeal signs. CARDIOVASCULAR: Regular rate and rhythm without murmurs, gallops, or rubs. RESPIRATORY: Lungs are coarse and equal , diminished basis GASTROINTESTINAL: Abdomen soft, non-tender, nondistended. No hepato-splenomegaly , or palpable masses. No guarding. MUSCULOSKELETAL: Extremities without clubbing, cyanosis, or edema. No joint tenderness, effusion, or edema noted. No calf tenderness. Negative Homans sign bilaterally. NEUROLOGICAL: Awake and alert. Cranial nerves II through XII intact. Motor and sensory grossly within normal limits. Five out of 5 muscle strength in all muscle groups. Normal speech. Assessment & Plan Diagnosis: (1) Pneumonia ICD Codes: J18.9 - Pneumonia, unspecified organism Status: Acute Plan: PT WITH COMMUNITY ACQUIRED PNEUMONIA SHE HAS BEEN EXPOSED TO HEALTH CARE ACQUIRED PATHOGENS SO WOULD COVER THAT, SHE HAS BEEN STARTED ON LEVAQUIN/CEFEPIME AND VANCOMYCIN SO WOULD CONTINUE AND FU IF NOT BETTER WOULD CHECK A CT CHEST FU (2) Sepsis ICD Codes: A41.9 - Sepsis, unspecified organism Status: Acute Problem Qualifiers (1) Pneumonia: Qualified Codes: J18.1 - Lobar pneumonia, unspecified organism (2) Sepsis: Qualified Codes: A41.9 - Sepsis, unspecified organism Lisandra Farias May 17, 2017 18:05
[2017-05-17] MEDS: LEVOFLOXACIN 750 MG PREMIX INJ 150 ML IV SCH (18:33)
--- NOTE | 2017-05-17 18:54 | HHI.PR ---
Subjective Remarks Nursing denies any deterioration since last night. Nursing states the patient still has crackles heard on auscultation. Patient herself denies any symptoms. Denies any deterioration. Objective Vital Signs Date Time Temp Pulse Resp B/P (MAP) Pulse Ox O2 Delivery O2 Flow Rate FiO2 05/17/17 16:00 97.5 83 20 142/73 (96) 91 05/17/17 14:55 93 21 05/17/17 12:00 96.2 73 20 157/80 (105) 93 05/17/17 08:00 96.7 66 20 134/75 (94) 93 05/17/17 00:00 96.2 76 20 135/72 (93) 92 05/16/17 20:00 97.1 85 21 129/69 (89) 92 05/16/17 19:33 95 21 I/O 05/16/17 05/16/17 05/16/17 05/17/17 05/17/17 05/17/17 07:00 15:00 23:00 07:00 15:00 23:00 Intake Total 515 ml 700 ml 710 ml 1240 ml 1310 ml 520 ml Balance 515 ml 700 ml 710 ml 1240 ml 1310 ml 520 ml Intake Oral 600 ml 90 ml 720 ml 960 ml IV Total 515 ml 100 ml 620 ml 520 ml 350 ml 520 ml # Voids 5 2 4 3 # Bowel Movements 1 1 Result Diagram: 05/14/17 1330 05/17/17 1122 Objective Remarks Very prominent junky breath sounds bilaterally including crackles and wheezing Unlabored breathing, no cyanosis A/P Assessment and Plan 51-year-old white female admitted for sepsis secondary to pneumonia Clinically patient's pneumonia continues to sound worse - even though she feels okay. Discussed case with infectious disease, obtained a CT chest which I independently reviewed which shows extensive RUL infiltrates. Continue broad- spectrum antibiotics. Patient may have contracted a resistant strain of pneumonia given her frequent exposure to nursing homes which she affirms. Hepatomegaly likely from fatty liver Lawson Patel MD May 17, 2017 18:54
[2017-05-17] MEDS: oxyCODONE/ACETAMINOPHEN 7.5 MG/325 MG TAB PO PRN (22:01)
[2017-05-17] MEDS ORDERED: guaiFENesin/DEXTROMETHORPHAN 200 MG/20 MG/10 ML CUP PO PRN (22:15)
[2017-05-18] VITALS: BP 144/88; PULSE 70; RESP 20; TEMP 96.1; O2SAT 94
[2017-05-18] MEDS ORDERED: PHARMACY ORDERED LAB ONE (02:45)
[2017-05-18] MEDS: VANCOMYCIN INJ 2,000 MG in SODIUM CHLORID 0.9% 500 ML INJ 500 ML IV SCH (02:50)
[2017-05-18] MEDS: SODIUM CHLORIDE 0.9% FLUSH 10 ML FLUSH IV FLUSH PRN ×3 (02:50→21:01)
[2017-05-18] MEDS: hydrOXYzine PAMOATE 25 MG CAP PO PRN ×2 (02:59→20:53)
[2017-05-18] MEDS: CEFEPIME INJ 1,000 MG in SODIUM CHLORIDE 0.9% INJ 100 ML IV SCH ×3 (05:16→20:47)
[2017-05-18] MEDS: methylPREDNISolone SOD SUCC 125 MG/2 ML VIAL IV PUSH SCH ×3 (05:19→21:01)
[2017-05-18 06:21] LABS: AUTOMATED NEUTROPHIL # 4.2 TH/MM3 (1.8-7.7); BASOPHIL % 0.1 % (0.0-2.0); EOSINOPHIL % 0.3 % (0.0-4.0); HEMATOCRIT 34.3 % (35.0-46.0); HEMOGLOBIN 11.1 GM/DL (11.6-15.3); LYMPH % 19.6 % (9.0-44.0); LYMPHOCYTE # 1.2 TH/MM3 (1.0-4.8); MEAN CELL VOLUME 86.9 FL (80.0-100.0); MEAN CORPUSCULAR HGB CONC 32.3 % (32.0-36.0); MEAN PLATELET VOLUME 7.7 FL (7.0-11.0); MONOCYTE # 0.8 TH/MM3 (0-0.9); PLATELET COUNT 296 TH/MM3 (150-450); RED BLOOD COUNT 3.94 MIL/MM3 (4.00-5.30); RED CELL DISTRIBUTION WIDTH 12.2 % (11.6-17.2); WHITE BLOOD COUNT 6.2 TH/MM3 (4.0-11.0)
[2017-05-18 06:34] LABS: CALCIUM 8.6 MG/DL (8.5-10.1)
[2017-05-18 06:35] LABS: BICARBONATE 29.9 MEQ/L (21.0-32.0)
[2017-05-18 06:38] LABS: CREATININE 0.67 MG/DL (0.50-1.00)
[2017-05-18] MEDS: RESP: ACETYLCYSTEINE 10% 10 ML NEB NEB SCH ×2 (07:49→13:50)
[2017-05-18] MEDS: RESP: ALBUTEROL 2.5 MG/IPRATROPIUM 0.5 MG NEB (PRN) INH ×2 (07:49→13:50)
[2017-05-18 07:54] VITALS: O2SAT 94
[2017-05-18 08:00] VITALS: BP 143/69; PULSE 84; RESP 20; TEMP 97.2; O2SAT 93
[2017-05-18] MEDS: SODIUM CHLORIDE 0.9% FLUSH 10 ML FLUSH IV FLUSH SCH ×2 (08:02→20:48)
[2017-05-18] MEDS: ENOXAPARIN SODIUM 30 MG/0.3 ML SYRINGE SQ SCH (08:57)
[2017-05-18] MEDS: FUROSEMIDE 20 MG/2 ML VIAL IV PUSH SCH ×2 (08:57→17:18)
[2017-05-18] MEDS: LACTOBACILLUS ACIDOPHILUS TAB PO SCH ×2 (08:57→20:48)
[2017-05-18] MEDS: guaiFENesin E.R. 600 MG TAB PO SCH ×2 (08:57→20:48)
--- NOTE | 2017-05-18 09:49 | HHI.IDPN ---
Subjective Subjective Remarks Feels better Anxious to go home Says breathing is better and cough almost gone Antibiotics Vancomycin Cefepime and Levofloxacin Lines PERIPHERAL Past Medical History Pneumonia twice as a child Allergies: Coded Allergies: ampicillin (Unverified Allergy, Severe, RASH, 05/11/17) diazepam (Unverified Allergy, Severe, DIZZY, 05/11/17) sulfamethoxazole (Unverified Allergy, Severe, 05/11/17) trimethoprim (Unverified Allergy, Severe, 05/11/17) Sulfa (Sulfonamide Antibiotics) (Unverified Allergy, Intermediate, nausea , 05/11/17) terazosin (Unverified Adverse Reaction, Severe, made me feel bad to stop it, 05/11/17) diflunisal (Unverified Adverse Reaction, Intermediate, nausea, 05/11/17) ofloxacin (Unverified Adverse Reaction, Intermediate, NAUSEA, 05/11/17) nabumetone (Unverified Adverse Reaction, Unknown, nausea, 05/11/17) Review of Systems Constitutional Constitutional Remarks No fever Objective . Vital Signs Date Time Temp Pulse Resp B/P (MAP) Pulse Ox O2 Delivery O2 Flow Rate FiO2 05/18/17 07:54 94 21 05/18/17 00:00 96.1 70 20 144/88 (106) 94 05/17/17 21:21 95 21 05/17/17 20:00 97.1 75 23 149/83 (105) 95 05/17/17 16:00 97.5 83 20 142/73 (96) 91 05/17/17 14:55 93 21 05/17/17 12:00 96.2 73 20 157/80 (105) 93 . Laboratory Tests Test 05/18/17 05:45 White Blood Count 6.2 TH/MM3 Red Blood Count 3.94 MIL/MM3 Hemoglobin 11.1 GM/DL Hematocrit 34.3 % Mean Corpuscular Volume 86.9 FL Mean Corpuscular Hemoglobin 28.0 PG Mean Corpuscular Hemoglobin Concent 32.3 % Red Cell Distribution Width 12.2 % Platelet Count 296 TH/MM3 Mean Platelet Volume 7.7 FL Neutrophils (%) (Auto) 67.0 % Lymphocytes (%) (Auto) 19.6 % Monocytes (%) (Auto) 13.0 % Eosinophils (%) (Auto) 0.3 % Basophils (%) (Auto) 0.1 % Neutrophils # (Auto) 4.2 TH/MM3 Lymphocytes # (Auto) 1.2 TH/MM3 Monocytes # (Auto) 0.8 TH/MM3 Eosinophils # (Auto) 0.0 TH/MM3 Basophils # (Auto) 0.0 TH/MM3 CBC Comment DIFF FINAL Differential Comment Laboratory Tests Test 05/17/17 11:22 05/18/17 05:45 Blood Urea Nitrogen 15 MG/DL 13 MG/DL Creatinine 0.67 MG/DL 0.67 MG/DL Random Glucose 136 MG/DL 135 MG/DL Calcium Level 8.8 MG/DL 8.6 MG/DL Sodium Level 139 MEQ/L 139 MEQ/L Potassium Level 3.3 MEQ/L 3.1 MEQ/L Chloride Level 102 MEQ/L 103 MEQ/L Carbon Dioxide Level 27.5 MEQ/L 29.9 MEQ/L Anion Gap 10 MEQ/L 6 MEQ/L Estimat Glomerular Filtration Rate 92 ML/MIN 92 ML/MIN Physical Exam GENERAL: This is a acutely ill patient, in no apparent distress appears older than SKIN: No rashes, ecchymoses or lesions. Cool and dry. HEAD: Atraumatic. Normocephalic. No temporal or scalp tenderness. EYES: Pupils equal round and reactive. Extraocular motions intact. No scleral icterus. No injection or drainage. NECK: Trachea midline. No JVD or lymphadenopathy. Supple, nontender, no meningeal signs. CARDIOVASCULAR: Regular rate and rhythm without murmurs, gallops, or rubs. RESPIRATORY: Lungs are better today - less corse GASTROINTESTINAL: Abdomen soft, non-tender, nondistended. No hepato-splenomegaly , or palpable masses. No guarding. MUSCULOSKELETAL: Extremities without clubbing, cyanosis, or edema. No joint tenderness, effusion, or edema noted. No calf tenderness. Negative Homans sign bilaterally. NEUROLOGICAL: Awake and alert. Cranial nerves II through XII intact. Motor and sensory grossly within normal limits. Five out of 5 muscle strength in all muscle groups. Normal speech. Assessment & Plan Diagnosis: (1) Sepsis ICD Codes: A41.9 - Sepsis, unspecified organism Status: Acute (2) Pneumonia ICD Codes: J18.9 - Pneumonia, unspecified organism Status: Acute Plan: Reviewed CT scan Check TB Quantiferon test Patient refuses HIV test at this time Clinically better Continue IV antibiotics another 24-48 hrs then can change to PO but will need close follow up as outpatient Problem Qualifiers (1) Sepsis: Qualified Codes: A41.9 - Sepsis, unspecified organism (2) Pneumonia: Qualified Codes: J18.1 - Lobar pneumonia, unspecified organism Martina Floyd MD May 18, 2017 09:49
[2017-05-18] MEDS: VANCOMYCIN 1,500 MG/NS 500 ML IV SCH ×6 (11:00→18:35)
[2017-05-18 12:00] VITALS: BP 141/70; PULSE 68; RESP 20; TEMP 97; O2SAT 94
[2017-05-18 16:00] VITALS: BP 145/78; PULSE 68; RESP 18; TEMP 97.5; O2SAT 95
[2017-05-18] MEDS: LEVOFLOXACIN 750 MG PREMIX INJ 150 ML IV SCH (17:17)
[2017-05-18 20:00] VITALS: BP 161/96; PULSE 73; RESP 20; TEMP 96.9; O2SAT 95
--- NOTE | 2017-05-18 20:38 | HHI.PR ---
Subjective Remarks Nursing denies any deterioration since last night. Pt herself denies any deterioration. says her cough is "itchy." Objective Vital Signs Date Time Temp Pulse Resp B/P (MAP) Pulse Ox O2 Delivery O2 Flow Rate FiO2 05/18/17 16:00 97.5 68 18 145/78 (100) 95 05/18/17 12:00 97.0 68 20 141/70 (93) 94 05/18/17 08:00 97.2 84 20 143/69 (93) 93 05/18/17 07:54 94 21 05/18/17 00:00 96.1 70 20 144/88 (106) 94 05/17/17 21:21 95 21 I/O 05/17/17 05/17/17 05/17/17 05/18/17 05/18/17 05/18/17 07:00 15:00 23:00 07:00 15:00 23:00 Intake Total 1240 ml 1310 ml 1120 ml 1340 ml 850 ml Output Total 2100 ml Balance 1240 ml 1310 ml 1120 ml -760 ml 850 ml Intake Oral 720 ml 960 ml 720 ml 850 ml IV Total 520 ml 350 ml 1120 ml 620 ml Output Urine Total 2100 ml # Voids 4 3 6 # Bowel Movements 1 0 1 Result Diagram: 05/18/17 0545 05/18/17 0545 Objective Remarks left side lung field clear, right side shows mild-mod wheezes and crackles today unlabored breathing, no cyanosis A/P Assessment and Plan 51-year-old white transgender female admitted for sepsis secondary to pneumonia Clinically patient's pneumonia finally is showing improvement. Case d/w ID, anticipate discharge soon with close f/u. ID has ordered atypical labs. Hepatomegaly likely from fatty liver Lawson Patel MD May 18, 2017 20:38
[2017-05-18] MEDS: oxyCODONE/ACETAMINOPHEN 7.5 MG/325 MG TAB PO PRN (22:29)
[2017-05-19] VITALS: BP 146/87; PULSE 66; RESP 20; TEMP 97.2; O2SAT 94
[2017-05-19] MEDS: VANCOMYCIN 1,500 MG/NS 500 ML IV SCH ×6 (02:49→13:38)
[2017-05-19] MEDS: SODIUM CHLORIDE 0.9% FLUSH 10 ML FLUSH IV FLUSH PRN ×3 (02:49→05:55)
[2017-05-19] MEDS: CEFEPIME INJ 1,000 MG in SODIUM CHLORIDE 0.9% INJ 100 ML IV SCH ×2 (05:00→13:39)
[2017-05-19] MEDS: methylPREDNISolone SOD SUCC 125 MG/2 ML VIAL IV PUSH SCH (05:55)
[2017-05-19 06:57] LABS: CREATININE 0.54 MG/DL (0.50-1.00)
[2017-05-19 08:00] VITALS: BP 165/78; PULSE 80; RESP 18; TEMP 97.4; O2SAT 94
[2017-05-19] MEDS: ENOXAPARIN SODIUM 30 MG/0.3 ML SYRINGE SQ SCH (09:05)
[2017-05-19] MEDS: SODIUM CHLORIDE 0.9% FLUSH 10 ML FLUSH IV FLUSH SCH (09:06)
[2017-05-19] MEDS: guaiFENesin E.R. 600 MG TAB PO SCH ×2 (09:06→20:29)
[2017-05-19] MEDS: FUROSEMIDE 20 MG/2 ML VIAL IV PUSH SCH (09:06)
[2017-05-19] MEDS: LACTOBACILLUS ACIDOPHILUS TAB PO SCH ×2 (09:06→20:32)
[2017-05-19 10:04] VITALS: O2SAT 94
[2017-05-19 10:13] LABS: CALCIUM 8.8 MG/DL (8.5-10.1)
[2017-05-19 10:14] LABS: BICARBONATE 29.1 MEQ/L (21.0-32.0)
[2017-05-19] MEDS ORDERED: GLUCAGON 1 MG/ML VIAL OTHER PRN (10:15)
[2017-05-19] MEDS ORDERED: DEXTROSE 50% IN WATER 50 ML VIAL(D50) IV PUSH PRN (10:15)
[2017-05-19 10:17] LABS: CREATININE 0.55 MG/DL (0.50-1.00)
[2017-05-19] MEDS ORDERED: PHARMACY ORDERED LAB ONE (10:45)
[2017-05-19 12:00] VITALS: BP 136/78; PULSE 78; RESP 20; TEMP 97.3; O2SAT 94
[2017-05-19] MEDS: INSULIN ASPART SUPPLEMENTAL SCALE SQ SCH ×2 (12:00→16:59)
[2017-05-19] MEDS: oxyCODONE/ACETAMINOPHEN 7.5 MG/325 MG TAB PO PRN (16:03)
[2017-05-19 16:59] VITALS: RESP 18
[2017-05-19] MEDS ORDERED: guaiFENesin ER PO (17:44)
[2017-05-19] MEDS ORDERED: LEVA750T9 PO (17:44)
--- NOTE | 2017-05-19 17:44 | HHI.DCPOC ---
Discharge Care Plan Diagnosis: (1) Pneumonia (2) Sepsis Goals to Promote Your Health * To prevent worsening of your condition and complications * To maintain your health at the optimal level Directions to Meet Your Goals Take your medications as prescribed Follow your dietary instruction Follow activity as directed Keep your appointments as scheduled Take your immunizations and boosters as scheduled If your symptoms worsen call your PCP, if no PCP go to Urgent Care Center or Emergency Room Smoking is Dangerous to Your Health. Avoid second hand smoke Call the 24-hour hour crisis hotline for domestic abuse at Deborah Crawford MD May 19, 2017 17:44
--- NOTE | 2017-05-19 17:46 | HHI.DS ---
Discharge Summary Admission Date May 13, 2017 at 08:47 Discharge Date: May 19, 2017 Admitting Diagnosis sepsis, pneumonia, gastroenteritis (1) Bronchitis ICD Code: J40 - Bronchitis, not specified as acute or chronic Status: Acute (2) Pneumonia ICD Code: J18.9 - Pneumonia, unspecified organism Procedures none Brief History - From Admission 51-year-old white female being admitted for sepsis. Patient was in her usual state of health until about 2 days ago she was at [employer] and began experiencing cold-like symptoms. The next day she began feeling weak and started vomiting and decided come to the emergency department. Describes her emesis as nonbloody. She would at times even had dry heaving. Reports that her cough is wet but has not been able to produce sputum; denies any posttussive emesis. Reports feeling weak with body aches all over. Denies any diarrhea or change in bowel habits. CBC/BMP: 05/18/17 0545 05/19/17 0555 Significant Findings Laboratory Tests Test 05/17/17 11:22 05/18/17 02:50 05/18/17 05:45 05/19/17 05:55 Random Glucose 136 MG/DL (74-106) 135 MG/DL (74-106) 118 MG/DL (74-106) Potassium Level 3.3 MEQ/L (3.5-5.1) 3.1 MEQ/L (3.5-5.1) 3.3 MEQ/L (3.5-5.1) Vancomycin Level Trough 10.9 MCG/ML (5.0-10.0) Red Blood Count 3.94 MIL/MM3 (4.00-5.30) Hemoglobin 11.1 GM/DL (11.6-15.3) Hematocrit 34.3 % (35.0-46.0) Monocytes (%) (Auto) 13.0 % (0.0-8.0) Test 05/19/17 10:50 05/19/17 13:00 Vancomycin Level Trough 14.0 MCG/ML (5.0-10.0) Imaging Last Impressions Chest CT 05/17/17 0000 Signed Impressions: Service Date/Time: Wednesday, May 17, 2017 15:57 - CONCLUSION: Bilateral pneumonia that appears most likely infectious, upper lobe predominant on the right and lower lobe predominant on the left. There is also a small left pleural effusion. Ryne Rebollar MD Chest X-Ray 05/15/17 0000 Signed Impressions: Service Date/Time: Monday, May 15, 2017 12:58 - CONCLUSION: 1. Patchy infiltrate and consolidative change predominantly in the left lung base. This is concerning for pneumonia. Juanpablo Fermin MD Abdomen/Pelvis CT 05/11/17 1719 Signed Impressions: Service Date/Time: Thursday, May 11, 2017 18:37 - CONCLUSION: 1. Focal consolidation left lower lobe most characteristic of bronchopneumonia or aspiration. 2. Fatty liver a large to 24 cm. 3. No bowel obstruction or free fluid. No free air. Zhou Coffey MD PE at Discharge GENERAL: This is a well-nourished, well-developed patient, in no apparent distress. CARDIOVASCULAR: Regular rate and rhythm without murmurs, gallops, or rubs. RESPIRATORY: Clear to auscultation. Breath sounds equal bilaterally. No wheezes , rales, or rhonchi. GASTROINTESTINAL: Abdomen soft, non-tender, nondistended. Normal active bowel sounds MUSCULOSKELETAL: Extremities without clubbing, cyanosis, or edema. NEURO: Alert & Oriented x4 to person, place, time, situation. Moves all ext x4 Pt update on day of discharge Doing well, TB PCR negative Hospital Course Patient was seen and treated for pneumonia. There was a suspicion for tuberculosis and PCR TB was checked the results of which are available emergency room Electrolyzes were replaced Patient continued to improve and was discharged home Pt Condition on Discharge: Good Discharge Disposition: Discharge Home Discharge Time: <= 30 minutes Discharge Instructions DIET: Follow Instructions for: As Tolerated, No Restrictions Activities you can perform: Regular-No Restrictions Follow up Referrals: PCP Follow-up - 1 Week New Medications: Levofloxacin (Levaquin) 750 Mg Tablet 750 MG PO DAILY@1800 for Infection, #7 TAB [guaiFENesin ER] () 600 MG TABCR 600 MG PO BID for Cough, #14 TAB Continued Medications: Albuterol 18 GM Inh (Ventolin Hfa 18 GM Inh) 90 Mcg/Act Aer 2 PUFF INH Q4-6H PRN for SHORTNESS OF BREATH, #1 INHALER 0 Refills Estradiol (Estradiol) 1 Mg Tab 1 MG PO DAILY for Estrogen Supplements, #30 TAB 0 Refills Estradiol Vaginal (Estrace Vaginal) 0.01% Cream 1 APPL VAGINAL HS for Estrogen Supplements, #1 TUBE 0 Refills Hydroxyzine Pamoate (Hydroxyzine Pamoate) 25 Mg Cap 25 MG PO Q6H PRN for ANXIETY, CAP 0 Refills Oxycodone-Acetaminophen (Percocet) 7.5-325 mg Tab 1 TAB PO Q6H PRN for PAIN, TAB 0 Refills Deborah Crawford MD May 19, 2017 17:46
[2017-05-19] MEDS ORDERED: LEVOFLOXACIN 750 MG TAB PO SCH (18:00)
--- NOTE | 2017-05-19 18:31 | HHI.IDPN ---
Subjective Subjective Remarks Feels better Anxious to go home Says breathing is better and cough almost gone No has thrush orally Antibiotics Vancomycin Cefepime and Levofloxacin Lines PERIPHERAL Past Medical History Pneumonia twice as a child Allergies: Coded Allergies: ampicillin (Unverified Allergy, Severe, RASH, 05/11/17) diazepam (Unverified Allergy, Severe, DIZZY, 05/11/17) sulfamethoxazole (Unverified Allergy, Severe, 05/11/17) trimethoprim (Unverified Allergy, Severe, 05/11/17) Sulfa (Sulfonamide Antibiotics) (Unverified Allergy, Intermediate, nausea , 05/11/17) terazosin (Unverified Adverse Reaction, Severe, made me feel bad to stop it, 05/11/17) diflunisal (Unverified Adverse Reaction, Intermediate, nausea, 05/11/17) ofloxacin (Unverified Adverse Reaction, Intermediate, NAUSEA, 05/11/17) nabumetone (Unverified Adverse Reaction, Unknown, nausea, 05/11/17) Objective . Vital Signs Date Time Temp Pulse Resp B/P (MAP) Pulse Ox O2 Delivery O2 Flow Rate FiO2 05/19/17 16:59 18 05/19/17 12:00 97.3 78 20 136/78 (97) 94 05/19/17 10:04 94 21 05/19/17 08:00 97.4 80 18 165/78 (107) 94 05/19/17 00:00 97.2 66 20 146/87 (106) 94 05/18/17 20:00 96.9 73 20 161/96 (117) 95 05/18/17 20:00 95 21 05/19/17 05/19/17 05/20/17 15:00 23:00 07:00 Intake Total 100 ml Balance 100 ml IV Total 100 ml . Laboratory Tests Test 05/18/17 05:45 White Blood Count 6.2 TH/MM3 Red Blood Count 3.94 MIL/MM3 Hemoglobin 11.1 GM/DL Hematocrit 34.3 % Mean Corpuscular Volume 86.9 FL Mean Corpuscular Hemoglobin 28.0 PG Mean Corpuscular Hemoglobin Concent 32.3 % Red Cell Distribution Width 12.2 % Platelet Count 296 TH/MM3 Mean Platelet Volume 7.7 FL Neutrophils (%) (Auto) 67.0 % Lymphocytes (%) (Auto) 19.6 % Monocytes (%) (Auto) 13.0 % Eosinophils (%) (Auto) 0.3 % Basophils (%) (Auto) 0.1 % Neutrophils # (Auto) 4.2 TH/MM3 Lymphocytes # (Auto) 1.2 TH/MM3 Monocytes # (Auto) 0.8 TH/MM3 Eosinophils # (Auto) 0.0 TH/MM3 Basophils # (Auto) 0.0 TH/MM3 CBC Comment DIFF FINAL Differential Comment Laboratory Tests Test 05/18/17 05:45 05/19/17 05:55 Blood Urea Nitrogen 13 MG/DL 12 MG/DL Creatinine 0.67 MG/DL 0.55 MG/DL Random Glucose 135 MG/DL 118 MG/DL Calcium Level 8.6 MG/DL 8.8 MG/DL Sodium Level 139 MEQ/L 138 MEQ/L Potassium Level 3.1 MEQ/L 3.3 MEQ/L Chloride Level 103 MEQ/L 103 MEQ/L Carbon Dioxide Level 29.9 MEQ/L 29.1 MEQ/L Anion Gap 6 MEQ/L 6 MEQ/L Estimat Glomerular Filtration Rate 92 ML/MIN 116 ML/MIN Physical Exam GENERAL: This is a acutely ill patient, in no apparent distress appears older than SKIN: No rashes, ecchymoses or lesions. Cool and dry. HEAD: Atraumatic. Normocephalic. No temporal or scalp tenderness. EYES: Pupils equal round and reactive. Extraocular motions intact. No scleral icterus. No injection or drainage. NECK: Trachea midline. No JVD or lymphadenopathy. Supple, nontender, no meningeal signs. CARDIOVASCULAR: Regular rate and rhythm without murmurs, gallops, or rubs. RESPIRATORY: Lungs are better today - fine crackle at lll GASTROINTESTINAL: Abdomen soft, non-tender, nondistended. No hepato-splenomegaly , or palpable masses. No guarding. MUSCULOSKELETAL: Extremities without clubbing, cyanosis, or edema. No joint tenderness, effusion, or edema noted. No calf tenderness. Negative Homans sign bilaterally. NEUROLOGICAL: Awake and alert. Cranial nerves II through XII intact. Motor and sensory grossly within normal limits. Five out of 5 muscle strength in all muscle groups. Normal speech. Assessment & Plan Diagnosis: (1) Pneumonia ICD Codes: J18.9 - Pneumonia, unspecified organism Status: Acute Plan: PT WITH COMMUNITY ACQUIRED PNEUMONIA would change to doxycyline x 7 days and dc add nystatin swish x 10days (2) Sepsis ICD Codes: A41.9 - Sepsis, unspecified organism Status: Acute Problem Qualifiers (1) Pneumonia: Qualified Codes: J18.1 - Lobar pneumonia, unspecified organism (2) Sepsis: Qualified Codes: A41.9 - Sepsis, unspecified organism Lisandra Farias May 19, 2017 18:31
[2017-05-19] MEDS ORDERED: NYSTATIN SUSP 500,000 U/5 ML CUP PO SCH (21:00)
== END 2017-05-19 20:51 | disposition home or self-care (01) | DRG 871 ==
LOC: PHED 16:47 → PHEDA 20:18 → PH3A 21:31 → OBSVTOIN 05-13 08:47
PROVIDERS: ADMIT Hospitalist; ATTEND Hospitalist
DX: A41.9 Sepsis, unspecified organism (principal); J18.9 Pneumonia, unspecified organism; E87.2 Acidosis; K76.0 Fatty (change of) liver, not elsewhere classified; E86.0 Dehydration; R16.0 Hepatomegaly, not elsewhere classified; K21.9 Gastro-esophageal reflux disease without esophagitis; E66.9 Obesity, unspecified; Z68.32 Body mass index [BMI] 32.0-32.9, adult; Z87.891 Personal history of nicotine dependence
CPT/HCPCS: 71045; 71046; 71260; 74177; 80048; 80053; 80202; 81001; 82565; 82948; 83605; 83690; 85025; 85610; 85730; 86480; 87040; 87070; 87205; 87449; 87493; 87556; 87798; 87804; 94150; 94640; 94664; 96361; 96365; 96366; 96367; 96368; 96375; 96376; G0378; G8987-GP; G8988-GP; J0456; J0692; J1650; J1940; J1956; J2270; J2405; J2930; J3250; J3370; J7030; J7040; J7050; J7608; Q0177; Q9967

== ENCOUNTER 2017-08-08 21:37 | Emergency (ER) | payer MEDICARE, OTHER ==
[~2017-08-08] VITALS: Ht 175.3 cm; Wt 99.0 kg
[~2017-08-08 21:37] MED LIST changes: +LEVA750T9 PO; +guaiFENesin ER PO
[2017-08-08 21:43] VITALS: BP 132/77; PULSE 70; RESP 20; TEMP 98.3; O2SAT 97
--- NOTE | 2017-08-08 22:45 | PD ---
HPI Chief Complaint: Complaint Time Seen by Provider: 22:41 Travel History International Travel<30 days: No Contact w/Intl Traveler<30days: No Traveled to known affect area: No History of Present Illness HPI 51-year-old female presents to the emergency department for complaint of 1 day of dysuria frequency urgency and flank pain. Patient denies fever or chills. Patient had nausea without vomiting. Patient denies generalized abdominal pain. Patient reports hospitalization in April for sepsis and pneumonia and was discharged with Levaquin at that time but has not recently been on antibiotic therapy. Patient denies any other concerns or complaints. Patient does voice history of gender reassignment surgery. Patient reports minimal relief of symptoms with cranberry juice and fluids. PFSH Past Medical History Narrative Medical Asthma depression dyslipidemia gender reassignment surgery; no tobacco use no alcohol use; nursing notes reviewed Hx Anticoagulant Therapy: No Arthritis: No Asthma: Yes Depression: Yes Heart Rhythm Problems: Yes Cancer: No Cardiac Catheterization: No Cardiovascular Problems: Yes (CHOL) High Cholesterol: Yes Chest Pain: No Congestive Heart Failure: No Cerebrovascular Accident: No Diabetes: No Diminished Hearing: No Endocrine: No Gastrointestinal Disorders: Yes GERD: Yes Genitourinary: Yes (Frequent UTI's/pelvic pain/URGENCY) Headaches: Yes Hiatal Hernia: No Hypertension: No Immune Disorder: No Kidney Stones: No Musculoskeletal: Yes Neurologic: Yes Reproductive: No Respiratory: Yes Immunizations Current: No Migraines: No Myocardial Infarction: No Renal Failure: No Seizures: No Sleep Apnea: No Ulcer: No Tetanus Vaccination: < 5 Years Influenza Vaccination: No ?: Not LMP: 10 YRS AGO Menopausal: Yes Past Surgical History Abdominal Surgery: Yes (Hernia repair) Cardiac Surgery: No Coronary Artery Bypass Graft: No Ear Surgery: No Endocrine Surgery: No Eye Surgery: No Genitourinary Surgery: Yes (Gender reassignment sx) Gynecologic Surgery: Yes (Gender reassignment sx) Hysterectomy: No Oral Surgery: No Thoracic Surgery: No Other Surgery: Yes (gender change, Inguinal hernia repair ) Family History Family Myocardial Infarction: Yes Social History Alcohol Use: No Tobacco Use: No Substance Use: No Allergies-Medications (Allergen,Severity, Reaction): Coded Allergies: ampicillin (Unverified Allergy, Severe, RASH, 05/11/17) diazepam (Unverified Allergy, Severe, DIZZY, 05/11/17) sulfamethoxazole (Unverified Allergy, Severe, 05/11/17) trimethoprim (Unverified Allergy, Severe, 05/11/17) Sulfa (Sulfonamide Antibiotics) (Unverified Allergy, Intermediate, nausea , 05/11/17) terazosin (Unverified Adverse Reaction, Severe, made me feel bad to stop it, 05/11/17) diflunisal (Unverified Adverse Reaction, Intermediate, nausea, 05/11/17) ofloxacin (Unverified Adverse Reaction, Intermediate, NAUSEA, 05/11/17) nabumetone (Unverified Adverse Reaction, Unknown, nausea, 05/11/17) Reported Meds & Prescriptions Reported Meds & Active Scripts Active [guaiFENesin ER] 600 MG Tabcr 600 Mg PO BID Levaquin (Levofloxacin) 750 Mg Tablet 750 Mg PO DAILY@1800 Ventolin Hfa 18 GM Inh (Albuterol Sulfate) 90 Mcg/Act Aer 2 Puff INH Q4-6H PRN Reported Percocet (Oxycodone-Acetaminophen) 7.5-325 mg Tab 1 Tab PO Q6H PRN Hydroxyzine Pamoate 25 Mg Cap 25 Mg PO Q6H PRN Estradiol 1 Mg Tab 1 Mg PO DAILY Estrace Vaginal (Estradiol) 0.01% Cream 1 Appl VAGINAL HS Review of Systems Except as stated in HPI: all other systems reviewed are Neg Physical Exam Narrative GENERAL: Well-developed well-nourished female in no acute distress no respiratory distress SKIN: Warm and dry. HEAD: Normocephalic. EYES: No scleral icterus. No injection or drainage. NECK: Supple, trachea midline. No JVD or lymphadenopathy. CARDIOVASCULAR: Regular rate and rhythm without murmurs, gallops, or rubs. RESPIRATORY: Breath sounds equal bilaterally. No accessory muscle use. GASTROINTESTINAL: Abdomen soft, non-tender, nondistended. MUSCULOSKELETAL: No cyanosis, or edema. BACK: Nontender without obvious deformity. No CVA tenderness. Data Data Last Documented VS Vital Signs Date Time Temp Pulse Resp B/P (MAP) Pulse Ox O2 Delivery O2 Flow Rate FiO2 08/08/17 21:43 98.3 70 20 132/77 (95) 97 Orders Orders Urinalysis - C+S If Indicated (08/08/17 22:58) Urine Culture (08/08/17 23:00) Ed Discharge Order (08/08/17 23:41) Ciprofloxacin (Cipro) (08/08/17 23:45) Phenazopyridine (Pyridium) (08/08/17 23:45) Labs Laboratory Tests Test 08/08/17 23:00 Urine Color YELLOW Urine Turbidity CLEAR Urine pH 5.5 Urine Specific [place] 1.010 Urine Protein NEG mg/dL Urine Glucose (UA) NEG mg/dL Urine Ketones NEG mg/dL Urine Occult Blood LARGE Urine Nitrite NEG Urine Bilirubin NEG Urine Urobilinogen 0.2 MG/DL Urine Leukocyte Esterase SMALL Urine RBC 25-49 /hpf Urine WBC 100-200 /hpf Urine WBC Clumps MOD Urine Squamous Epithelial Cells 0-5 /hpf Urine Bacteria FEW /hpf Microscopic Urinalysis Comment CULTURE INDICATED MDM Medical Decision Making Medical Screen Exam Complete: Yes Emergency Medical Condition: Yes Medical Record Reviewed: Yes Interpretation(s) UA: White blood cells clumped white blood cell bacteria culture indicated Differential Diagnosis Dysuria, UTI, pyelonephritis, colitis, diverticulitis Narrative Course Urine specimen collected and sent for resulting; triage vital signs found to be in normal range afebrile Urinalysis resulted in abnormal consistent with UTI patient given first dose of Cipro in the emergency department and Pyridium; patient lists medication sensitivity to ofloxacin --nausea but does not have the side effect with Cipro Diagnosis Primary Impression: Dysuria Referrals: Primary Care Physician 2 days Patient Instructions: General Instructions Additional Instructions: Complete course of antibiotic as prescribed Increase fluid hydration Follow-up with your primary care provider May take [id number] acetaminophen or ibuprofen per package directions Med/Other Pt SpecificInfo: Prescription(s) given Scripts Phenazopyridine (Pyridium) 100 Mg Tab 100 MG PO Q8H Y for DYSURIA for 3 Days, #9 TAB 0 Refills Prov: Chiquita Preston MD 08/08/17 Ciprofloxacin (Cipro) 500 Mg Tab 500 MG PO BID for Infection for 7 Days, #14 TAB 0 Refills Prov: Chiquita Preston MD 08/08/17 Disposition: 01 DISCHARGE HOME Condition: Stable Chiquita Preston MD Aug 08, 2017 22:44
[2017-08-08 23:11] LABS: BILIRUBIN, URINE NEG (NEG); BLOOD, URINE LARGE (NEG); GLUCOSE,URINE NEG (NEG); KETONE, URINE NEG (NEG); NITRITE,URINE NEG (NEG); PH, URINE 5.5 (5.0-8.5); URINE COLOR YELLOW (YELLW/STRAW); URINE LEUKOCYTE ESTERASE SMALL (NEG)
[2017-08-08 23:20] LABS: WBC, URINE 100-200 /hpf (0-5); WHITE BLOOD CELL CLUMPS MOD
[2017-08-08 23:21] LABS: BACTERIA, URINE FEW /hpf; SQUAMOUS EPITHELIAL CELL URINE 0-5 /hpf (0-5)
[2017-08-08] MEDS ORDERED: CIPR-9 PO (23:44)
[2017-08-08] MEDS ORDERED: PHEN0.4T PO (23:44)
[2017-08-08] MEDS ORDERED: CIPROFLOXACIN 500 MG TAB PO ONE (23:45)
[2017-08-08] MEDS ORDERED: PHENAZOPYRIDINE HCL 100 MG TAB PO ONE (23:45)
[2017-08-09] VITALS: BP 142/75; TEMP 98.2
== END 2017-08-09 | disposition home or self-care (01) ==
LOC: PHED 21:37
DX: R30.0 Dysuria (principal); B96.1 Klebsiella pneumoniae [K. pneumoniae] as the cause of diseases classified elsewhere; J45.909 Unspecified asthma, uncomplicated; F32.9 Major depressive disorder, single episode, unspecified; E78.5 Hyperlipidemia, unspecified; K21.9 Gastro-esophageal reflux disease without esophagitis
CPT/HCPCS: 81001; 87077; 87086; 87186; 99283

== ENCOUNTER 2017-08-26 19:38 | Emergency (ER) | payer MEDICARE, MEDICAID ==
[~2017-08-26 19:38] MED LIST changes: +CIPR-9 PO; +PHEN0.4T PO
[2017-08-26 19:51] VITALS: BP 150/75; PULSE 73; RESP 20; TEMP 97.9; O2SAT 95
[2017-08-26 20:34] LABS: BILIRUBIN, URINE NEG (NEG); BLOOD, URINE NEG (NEG); GLUCOSE,URINE NEG (NEG); KETONE, URINE NEG (NEG); NITRITE,URINE NEG (NEG); URINE COLOR YELLOW (YELLW/STRAW); URINE LEUKOCYTE ESTERASE NEG (NEG)
--- NOTE | 2017-08-26 20:43 | PD ---
HPI . dysuria Chief Complaint: Complaint Time Seen by Provider: 19:55 Travel History International Travel<30 days: No Contact w/Intl Traveler<30days: No Traveled to known affect area: No History of Present Illness HPI Patient has a dysuria and suprapubic pain bilateral flank pain was recently treated for UTI was given Cipro. Pt had culture that grew Klebsiella which was pansensitive on review of her micro labs from last visit to [facility] ... Patient says symptoms are returning she took [id number] vitamins and OTC med that is to acidify her urine she drank a little vinegar apple cider vinegar and still has symptoms. Reports ho,e remedy not alleviating Sx.. patient in the ER is complaining of suprapubic pain and bilateral flank pain and nausea epigastric pain slight cough. She has history of UTIs that are recurrent. Patient has history of gender reassignment is on estrogen replacement therapy PFSH Past Medical History Hx Anticoagulant Therapy: No Arthritis: No Asthma: Yes Depression: Yes Heart Rhythm Problems: Yes Cancer: No Cardiac Catheterization: No Cardiovascular Problems: Yes (CHOL) High Cholesterol: Yes Chest Pain: No Congestive Heart Failure: No Cerebrovascular Accident: No Diabetes: No Diminished Hearing: No Endocrine: No Gastrointestinal Disorders: Yes GERD: Yes Genitourinary: Yes (Frequent UTI's/pelvic pain/URGENCY) Headaches: Yes Hiatal Hernia: No Hypertension: No Immune Disorder: No Kidney Stones: No Musculoskeletal: Yes Neurologic: Yes Reproductive: No Respiratory: Yes Immunizations Current: No Migraines: No Myocardial Infarction: No Renal Failure: No Seizures: No Sleep Apnea: No Ulcer: No Menopausal: Yes Past Surgical History Abdominal Surgery: Yes (Hernia repair) Cardiac Surgery: No Coronary Artery Bypass Graft: No Ear Surgery: No Endocrine Surgery: No Eye Surgery: No Genitourinary Surgery: Yes (Gender reassignment sx) Gynecologic Surgery: Yes (Gender reassignment sx) Hysterectomy: No Oral Surgery: No Thoracic Surgery: No Other Surgery: Yes (gender change, Inguinal hernia repair ) Social History Alcohol Use: No Tobacco Use: No Substance Use: No Allergies-Medications (Allergen,Severity, Reaction): Coded Allergies: ampicillin (Unverified Allergy, Severe, RASH, 08/26/17) diazepam (Unverified Allergy, Severe, DIZZY, 08/26/17) sulfamethoxazole (Unverified Allergy, Severe, 08/26/17) trimethoprim (Unverified Allergy, Severe, 08/26/17) Sulfa (Sulfonamide Antibiotics) (Unverified Allergy, Intermediate, nausea , 08/26/17) terazosin (Unverified Adverse Reaction, Severe, made me feel bad to stop it, 08/26/17) diflunisal (Unverified Adverse Reaction, Intermediate, nausea, 08/26/17) ofloxacin (Unverified Adverse Reaction, Intermediate, NAUSEA, 08/26/17) nabumetone (Unverified Adverse Reaction, Unknown, nausea, 08/26/17) Reported Meds & Prescriptions Reported Meds & Active Scripts Active Pyridium (Phenazopyridine HCl) 100 Mg Tab 100 Mg PO Q8HR Levaquin (Levofloxacin) 500 Mg Tablet 500 Mg PO DAILY Pyridium (Phenazopyridine HCl) 100 Mg Tab 100 Mg PO Q8H PRN 3 Days Cipro (Ciprofloxacin HCl) 500 Mg Tab 500 Mg PO BID 7 Days [guaiFENesin ER] 600 MG Tabcr 600 Mg PO BID Levaquin (Levofloxacin) 750 Mg Tablet 750 Mg PO DAILY@1800 Ventolin Hfa 18 GM Inh (Albuterol Sulfate) 90 Mcg/Act Aer 2 Puff INH Q4-6H PRN Reported Percocet (Oxycodone-Acetaminophen) 7.5-325 mg Tab 1 Tab PO Q6H PRN Hydroxyzine Pamoate 25 Mg Cap 25 Mg PO Q6H PRN Estradiol 1 Mg Tab 1 Mg PO DAILY Estrace Vaginal (Estradiol) 0.01% Cream 1 Appl VAGINAL HS Review of Systems Except as stated in HPI: all other systems reviewed are Neg Physical Exam Narrative GENERAL: large body habitus SKIN: Warm and dry. HEAD: Atraumatic. Normocephalic. EYES: Pupils equal and round. No scleral icterus. No injection or drainage. ENT: No nasal bleeding or discharge. Mucous membranes pink and moist. NECK: Trachea midline. No JVD. CARDIOVASCULAR: Regular rate and rhythm. RESPIRATORY: No accessory muscle use. Clear to auscultation. Breath sounds equal bilaterally. GASTROINTESTINAL: Abdomen suprapubic area tenderness , nondistended. Hepatic and splenic margins not palpable. MUSCULOSKELETAL: Extremities without clubbing, cyanosis, or edema. No obvious deformities. NEUROLOGICAL: Awake and alert. No obvious cranial nerve deficits. Motor grossly within normal limits. Five out of 5 muscle strength in the arms and legs. Normal speech. PSYCHIATRIC: Appropriate mood and affect; insight and judgment normal. Data Data Last Documented VS Orders Orders Urinalysis - C+S If Indicated (08/26/17 20:04) Ibuprofen (Motrin) (08/26/17 21:00) Phenazopyridine (Pyridium) (08/26/17 21:00) Ed Discharge Order (08/26/17 21:14) Labs Laboratory Tests Test 08/26/17 20:12 Urine Color YELLOW Urine Turbidity CLEAR Urine pH 6.0 Urine Specific [place] 1.015 Urine Protein NEG mg/dL Urine Glucose (UA) NEG mg/dL Urine Ketones NEG mg/dL Urine Occult Blood NEG Urine Nitrite NEG Urine Bilirubin NEG Urine Urobilinogen 0.2 MG/DL Urine Leukocyte Esterase NEG Urine RBC 0-3 /hpf Urine WBC 0-2 /hpf Urine Bacteria NONE /hpf Microscopic Urinalysis Comment CULT NOT INDICATED MDM Medical Decision Making Medical Screen Exam Complete: Yes Emergency Medical Condition: Yes Medical Record Reviewed: Yes Differential Diagnosis UTI vs chronic sterile cystitis vs renal stones vs pyelonephritis , vs other Narrative Course UA negative but pt insists she knows the signs of a recurrence , so agree to give her another Rx for levaquin and pyridium for cystitis Diagnosis Primary Impression: Cystitis Patient Instructions: General Instructions, Interstitial Cystitis (ED) Scripts Phenazopyridine (Pyridium) 100 Mg Tab 100 MG PO Q8HR for Dysuria, #6 TAB 0 Refills Prov: Sunday Gamez MD 08/26/17 Levofloxacin (Levaquin) 500 Mg Tablet 500 MG PO DAILY for Infection, #7 TAB 0 Refills Prov: Sunday Gamez MD 08/26/17 Disposition: 01 DISCHARGE HOME Condition: Good Sunday Gamez MD August 26, 2017 20:43
[2017-08-26 20:45] LABS: RBC, URINE 0-3 /hpf (0-3); WBC, URINE 0-2 /hpf (0-5)
[2017-08-26 21:00] VITALS: BP 135/79; PULSE 68; RESP 16; O2SAT 98
[2017-08-26] MEDS ORDERED: IBUPROFEN 600 MG TAB PO ONE (21:00)
[2017-08-26] MEDS ORDERED: PHENAZOPYRIDINE HCL 100 MG TAB PO ONE (21:00)
[2017-08-26] MEDS ORDERED: LEVA500T33 PO (21:13)
[2017-08-26] MEDS ORDERED: PHEN0.4T PO (21:16)
[2017-08-26 22:00] VITALS: RESP 16
== END 2017-08-26 21:39 | disposition home or self-care (01) ==
LOC: PHED 19:38
DX: N30.90 Cystitis, unspecified without hematuria (principal); J45.909 Unspecified asthma, uncomplicated; F32.9 Major depressive disorder, single episode, unspecified; E78.00 Pure hypercholesterolemia, unspecified; K21.9 Gastro-esophageal reflux disease without esophagitis; Z87.440 Personal history of urinary (tract) infections; Z79.51 Long term (current) use of inhaled steroids; Z79.899 Other long term (current) drug therapy; Z88.2 Allergy status to sulfonamides
CPT/HCPCS: 81001; 99283